=== PATIENT | female | born 1945 | race Caucasian/White ===

== ENCOUNTER → 2020-11-09 14:50 | Outpatient (REF) | payer MEDICARE, OTHER, SELFPAY | LOC: ANHLAB 14:50 | PROVIDERS: PCP Internal Medicine; Visit Provider Nurse Practitioner | DX: D22.0 Melanocytic nevi of lip (principal) | CPT/HCPCS: 88305; 88342 ==

== ENCOUNTER → 2021-02-04 07:41 | Outpatient (CLI) | payer MEDICARE, OTHER, SELFPAY ==
[2021-02-04 19:22] LABS: SARS-CoV-2 RNA PCR Negative
== END ==
PROVIDERS: PCP Internal Medicine; Visit Provider Internal Medicine Gastroenterology
DX: Z01.812 Encounter for preprocedural laboratory examination (principal); Z20.822 Contact with and (suspected) exposure to COVID-19
CPT/HCPCS: C9803; U0003; U0005

== ENCOUNTER 2021-02-07 00:30 | Day surgery (SDC) | payer MEDICARE, OTHER, SELFPAY ==
[2021-01-27 09:49] VITALS: BMI 28.3
[2021-02-07 06:21] VITALS: BP 146/74; PULSE 73; RESP 18; TEMP 36.5; O2SAT 97
[2021-02-07 06:37] LABS: Glucose Point of Care 125 mg/dl (65-105)
[2021-02-07] MEDS: LACTATED RINGERS 1,000 ML 150 ML IV CONT (06:39)
--- NOTE | 2021-02-07 06:42 | WPDANESEPPF ---
Anes - Initial Pre Proc Eval Procedure: Operation Date: 02/07/21 07:30 Proposed Procedures p Esophagogastroduodenoscopy - Ranjith Cano MD Date/Time: 02/07/21 06:42 Surgeon: Ranjith Cano MD Pre Op Diagnosis: barretts esophagus, GERD Patient Data Age: 75 Gender: F Height: 5 ft 1 in Weight: 70.6 kg Last Vital Signs Temp 36.5 C 02/07/21 06:21 Pulse 73 02/07/21 06:21 Resp 18 02/07/21 06:21 BP 146/74 H 02/07/21 06:21 Pulse Ox 97 02/07/21 06:21 Allergies Allergy/AdvReac Type Severity Reaction Status Date / Time meloxicam Allergy Swelling Verified 02/07/21 06:16 of Lip/Tongue/Throat Home Medications Medication Instructions Recorded Confirmed Type aspirin 81 mg tablet,delayed 81 mg PO DAILY 07/25/19 01/27/21 History release calcium carb,cit 300 mg-D3 200 1 tablet PO DAILY 07/25/19 01/27/21 History unit-min no.34-genistein 13.5 mg tablet glucosamine-chondroitin 250 mg-200 2 tablet PO DAILY tablet 07/25/19 01/27/21 History mg tablet metformin 500 mg tablet,extended 250 mg PO DAILY 07/25/19 01/27/21 History release 24 hr metoprolol succinate 25 mg 25 mg PO DAILY 07/25/19 02/07/21 History tablet,extended release 24 hr multivitamin 1 tablet PO DAILY 07/25/19 01/27/21 History pantoprazole 40 mg tablet,delayed 40 mg PO BID 08/10/20 01/27/21 History release pravastatin 20 mg tablet 20 mg PO DAILY 08/10/20 01/27/21 History furosemide 10 mg/mL oral solution 10 mg PO DAILY 11/09/20 01/27/21 History famotidine 20 mg tablet 20 mg PO DAILY 01/17/21 01/27/21 History Laboratory Tests 02/07/21 06:34 POC Capillary Glucose 125 mg/dl H mg/dl (65-105) Patient hx anesthesia problems: none Family hx anesthesia problems: none PMFSH Past Medical History Medical History Arthritis Diabetes Gastric reflux Lipidemia Surgical History Surgical History History of cholecystectomy History of endoscopy History of hernia repair History of tonsillectomy and adenoidectomy Family History Family History Father Malignant neoplasm of prostate Family history of malignant neoplasm of urinary bladder Mother Family history of lymphoma Social History Social History Smoking packs per day: 1 Smoking cigarettes per day: 20.0 Years smoked: 20 Smoking pack-years: 20.00 Smoking status: Former smoker Tobacco type: cigarettes Alcohol intake: current Drinks per week: 1 Substance use: never Substance use type: does not use Living arrangements: with friend(s) Gender identity (if verbalized by the patient): Female Spiritual care concerns: No Anes - Eval Final PreProcedure Day of Procedure 02/07/21 06:42 Patient weight: overweight Heart: regular rate and rhythm Lungs: clear to auscultation Airway: Mallampati scale class III Neurological: alert and oriented Last oral intake: >/= 8 hours ASA classification: III Emergent: no Anesthetic plan: proceed Anesthesia type and monitoring: general GIVS Informed Consent: The patient's anesthetic plan and its attendant risks and benefits were discussed with the patient/family/POA. Questions were solicited and answers provided to the satisfaction of the patient/family/POA.
--- NOTE | 2021-02-07 07:30 | WPDHPUPDATE1 ---
History and Physical Update Update Date/Time: 02/07/21 07:30 History and Physical has been reviewed, including an updated exam of the patient. There are NO changes in the patient's condition. Risks, benefits, and alternatives have been discussed and questions answered. Patient agrees to proceed with procedure.
--- NOTE | 2021-02-07 07:40 | SUR.OPER ---
EGD scope removed at 07 so that ventilation could be given via ambu bag by anesthesia. EGD scope re-entered at 07.
[2021-02-07 07:52] VITALS: BP 130/68; PULSE 62; RESP 24; O2SAT 99
[2021-02-07 08:02] VITALS: BP 135/66; PULSE 62; RESP 22; O2SAT 100
[2021-02-07 08:12] VITALS: BP 140/72; PULSE 65; RESP 24; O2SAT 94
== END 2021-02-07 08:34 | disposition home or self-care (01) ==
PROVIDERS: PCP Internal Medicine; Visit Provider Internal Medicine Gastroenterology
PROC: 0DJ08ZZ Inspection of Upper Intestinal Tract, Via Natural or Artificial Opening Endoscopic (ICD-10-PCS; CPT 43235; principal; 2021-02-07 07:30)
DX: K21.9 Gastro-esophageal reflux disease without esophagitis (principal); K29.50 Unspecified chronic gastritis without bleeding; M19.90 Unspecified osteoarthritis, unspecified site; E11.9 Type 2 diabetes mellitus without complications; Z90.49 Acquired absence of other specified parts of digestive tract; Z87.891 Personal history of nicotine dependence
CPT/HCPCS: 43239; 82948; 88305; 88342; J2704; J7120

== ENCOUNTER 2021-02-23 13:23 | Outpatient (CLI) | payer MEDICARE, OTHER, SELFPAY ==
--- NOTE | ~2021-02-23 | US_ITS ---
EXAMINATION: US venous doppler [facility] EXAM DATE: 02/23/2021 14:03 INDICATION: Left lower extremity pain and swelling. TECHNIQUE: Multiple grayscale, color flow and Doppler images of the left lower extremity deep venous system were obtained and reviewed. There is no prior study for comparison. FINDINGS: The left common femoral, femoral and profunda veins demonstrate normal color flow, respirat ory variation, augmentation and compressibility. Compressibility, color flow confirmed within the le ft popliteal, posterior tibial, peroneal, and greater saphenous veins. IMPRESSION: 1. No left lower extremity deep venous thrombosis. Reviewed, dictated and finalized at location A.
== END 2021-02-23 13:24 | disposition home or self-care (01) ==
PROVIDERS: PCP Internal Medicine; Visit Provider Physician Assistant Medical
DX: M79.662 Pain in left lower leg (principal); R22.43 Localized swelling, mass and lump, lower limb, bilateral
CPT/HCPCS: 93971

== ENCOUNTER 2021-04-08 12:49 | Outpatient (CLI) | payer MEDICARE, OTHER, SELFPAY ==
--- NOTE | 2021-04-08 | ECHO_ITS ---
Patient Info Name: Jenni Herbert Age: 75 years : 1945 Gender: Female Ht: 62 in Wt: 155 lbs BSA: 1.78 m2 HR: 75 bpm BP: 126 / 79 mmHg Exam Date: 04/08/2021 1:19 PM Exam Location: [facility] Patient Status: Outpatient Admit Date: 04/08/2021 Staff Ordering Physician: Humaira, Anne MIRELES Junior Linux Systems Administrator: Glenn Hartman, CAMPOS, RT Attending Provider: Humaira, Anne MIRELES Referring Physician: Humaira WHITE; Exam Type: CA echo doppler color flow Study Info Indications R01.1 - Cardiac murmur, unspecified Complete two-dimensional, color flow and Doppler transthoracic echocardiogram is performed. Strain analysis performed. Summary 1. Complete two-dimensional, color flow and Doppler transthoracic echocardiogram is performed. 2. Left ventricular chamber dimension is normal. 3. Left ventricular systolic function is normal, estimated at 55-60%. 4. There is mildly increased left ventricular wall thickness. 5. Left ventricular septal wall motion is abnormal with septal motion related to bundle branch block. 6. The left ventricular diastolic function is grade I diastolic dysfunction. 7. E/e' 11 is mildly elevated. 8. Global longitudinal strain is abnormal at -15.3%. 9. No pulmonary hypertension, estimated pulmonary arterial systolic pressure is 34 mmHg. 10. There is trivial pericardial effusion. Left Ventricle E/e' 11 is mildly elevated. Global longitudinal strain is abnormal at -15.3%. Left ventricular chamber dimension is normal. Left ventricular systolic function is normal, estimated at 55-60%. There is mildly increased left ventricular wall thickness. Left ventricular septal wall motion is abnormal with septal motion related to bundle branch block. The left ventricular diastolic function is grade I diastolic dysfunction. Right Ventricle Right ventricular systolic function is normal with normal TAPSE 2.0 cm. Right ventricular chamber dimension is normal. Left Atria Left atrial chamber dimension is normal. Right Atria Right atrial chamber dimension is normal. Aortic Valve The aortic valve is trileaflet. There is no aortic valve stenosis. There is no aortic valve regurgitation. Pulmonic Valve There is no pulmonic regurgitation. Mitral Valve There is no mitral valve stenosis. There is no mitral valve regurgitation. Tricuspid Valve There is no tricuspid valve regurgitation. No pulmonary hypertension, estimated pulmonary arterial systolic pressure is 34 mmHg. Pericardium/Pleural There is trivial pericardial effusion. Inferior Vena Cava Normal inferior vena cava with >50% collapse upon inspiration consistent with normal right atrial pressure, 5 mmHg. Aorta The aortic root size at the sinus of Valsalva is normal. Left Ventricular Outflow Tract Name Value Normal LVOT 2D LVOT Diameter 2.0 cm LVOT Doppler LVOT Peak Gradient 5 mmHg LVOT Mean Gradient 3 mmHg LVOT VTI 20 cm LVOT VTI/AV VTI Ratio 0.7 LVOT Stroke Volume
== END 2021-04-08 12:50 | disposition home or self-care (01) ==
PROVIDERS: PCP Internal Medicine; Visit Provider Physician Assistant Medical
DX: R01.1 Cardiac murmur, unspecified (principal)
CPT/HCPCS: 93306

== ENCOUNTER 2021-05-06 08:33 | Outpatient (CLI) | payer MEDICARE, OTHER, SELFPAY ==
--- NOTE | ~2021-05-06 | NM_ITS ---
EXAMINATION: NM kelle stress w perfusion DATE: 05/06/2021 11:16 INDICATION: Dyspnea on exertion. TECHNIQUE: Rest images were obtained following intravenous administration of 10.6 mCi Tc99m tetrofosm in (Myoview). The patient was infused intravenously with Lexiscan (regadenoson). Then, 33 mCi Tc99m t etrofosmin (Myoview) was administered intravenously, and supine and prone stress images were obtained . Data was reconstructed into short axis and horizontal and vertical long axis SPECT images. Gated SP ECT images were also obtained. COMPARISON: None. FINDINGS: There is a small, mild, fixed perfusion defect involving apical to mid anterior wall, consi stent with infarct. No reversible component to suggest ischemia. There is no segmental wall motion ab normality. Left ventricular ejection fraction measures 51%. IMPRESSION: 1. 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 2. Left ventricular ejection fraction measuring 51%. Reviewed, dictated and finalized at location B. IMPRESSION: 1. Small area of mild infarct involving apical to mid anterior wall of left walt tricle. 2. Left ventricular ejection fraction measuring 51%.
--- NOTE | 2021-05-06 09:40 | EST_ITS ---
Patient Info Name: Jenni Herbert Age: 75 years : 1945 Gender: Female Ht: 61 in Wt: 155 lbs BSA: 1.76 m2 HR: 81 bpm BP: 145 / 83 mmHg Heart Rhythm: Right Bundle Branch Block Exam Date: 05/06/2021 9:51 AM Exam Location: [facility] Patient Status: Outpatient Admit Date: 05/06/2021 Staff Ordering Physician: Mark Neumann DO Attending Provider: Mark Neumann DO Exercise Technologist: Vidhya Clay CT Exercise Physician: Mark Neumann DO Exam Type: CA stress kelle w NM Study Info A regadenoson stress test was performed. Summary 1. 1. Inconclusive lexiscan stress test for ischemic ST changes by ECG criteria due to baseline LBBB. 2. 2. Baseline hypertension. 3. 3. Nuclear scan to follow and will be reported separately. Please correlate with it. 4. 4. Patient informed of the above results. Protocol: Lexiscan Stress ECG Details Stage: REST Duration (min): 1 min : 2 sec HR (bpm): 78 SBP (mmHg): 145 DBP (mmHg): 83 Stage: REST Duration (min): 5 min : 37 sec HR (bpm): 81 SBP (mmHg): 145 DBP (mmHg): 83 Stage: STAGE 1 Duration (min): 1 min : 0 sec HR (bpm): 100 SBP (mmHg): 157 DBP (mmHg): 84 Stage: RECOVERY Duration (min): 1 min : 0 sec HR (bpm): 92 SBP (mmHg): 157 DBP (mmHg): 84 Stage: RECOVERY Duration (min): 2 min : 0 sec HR (bpm): 89 SBP (mmHg): 157 DBP (mmHg): 84 Stage: RECOVERY Duration (min): 2 min : 50 sec HR (bpm): 84 SBP (mmHg): 146 DBP (mmHg): 78 Rest HR: 81 bpm Peak HR: 100 bpm Rest Sys BP: 145 mmHg Peak Sys BP: 157 mmHg Max Pred HR: 146 bpm % Max Pred HR: 68 % Target HR: 124 bpm Max RPP: 15,700 bpm*mmHg Termination Reason: Completed protocol Cardiac Symptoms: None Total Time: 1 min : 0 sec Rest Conway BP: 83 mmHg Peak Conway BP: 84 mmHg Total Dose: 0.4 mg Resting ECG Sinus rhythm with LBBB. Stress ECG No ST changes. Arrhythmias None. Report Signatures
== END 2021-05-06 08:34 | disposition home or self-care (01) ==
LOC: ANHCARD 08:34
PROVIDERS: PCP Internal Medicine; Visit Provider Internal Medicine Cardiovascular Disease
DX: R06.00 Dyspnea, unspecified (principal)
CPT/HCPCS: 78452; 93017; A9502; J2785

== ENCOUNTER 2023-04-18 12:33 | Outpatient (CLI) | payer MEDICARE, OTHER, SELFPAY ==
--- NOTE | ~2023-04-18 | US_ITS ---
EXAMINATION: US venous doppler [facility] DATE: 04/18/2023 13:24 INDICATION: Pulmonary embolus without acute cor pulmonale TECHNIQUE: Grayscale ultrasound images without and with compression and Doppler ultrasound images of the bilateral lower extremity veins were obtained. COMPARISON: 02/23/2021 FINDINGS: The visualized portions of right common femoral vein, profunda (deep) femoral vein, femoral vein, pop liteal vein, posterior tibial veins, peroneal veins, gastrocnemius vein and greater saphenous vein ou tflow are patent. The visualized portions of left common femoral vein, profunda femoral vein, femoral vein, popliteal v ein, posterior tibial veins, peroneal veins, gastrocnemius vein and greater saphenous vein outflow ar e patent. IMPRESSION: 1. No deep venous thrombosis in either lower limb. Reviewed, dictated and finalized at location A.
== END 2023-04-18 12:34 | disposition home or self-care (01) ==
PROVIDERS: PCP Physician Assistant Medical; Visit Provider Internal Medicine Critical Care Medicine
DX: I26.99 Other pulmonary embolism without acute cor pulmonale (principal)
CPT/HCPCS: 93970

== ENCOUNTER 2023-05-08 12:19 | Outpatient (CLI) | payer MEDICARE, OTHER, SELFPAY ==
--- NOTE | 2023-05-08 12:30 | ECHO_ITS ---
Patient Info Name: Jenni Herbert Age: 77 years : 1945 Gender: Female Ht: 61 in Wt: 152 lbs BSA: 1.75 m2 HR: 78 bpm BP: 135 / 76 mmHg Technical Quality: Good Exam Date: 05/08/2023 12:48 PM Exam Location: [facility] Patient Status: Outpatient Admit Date: 05/08/2023 Staff Ordering Physician: Chloe Gordon MD Anesthesia Director: Kimberly Gutierrez RDCS Attending Provider: Chloe Gordon MD Referring Physician: Evan SORENSEN; Exam Type: CA echo doppler color flow Study Info Indications - copd Complete two-dimensional, color flow and Doppler transthoracic echocardiogram is performed. Summary 1. Complete two-dimensional, color flow and Doppler transthoracic echocardiogram is performed. 2. Left ventricular chamber dimension is moderately enlarged. 3. Left ventricular systolic function is severely reduced, estimated at 30-35%. 4. Left ventricular septal wall motion is abnormal with septal motion related to bundle branch block. 5. The left ventricular diastolic function is grade I diastolic dysfunction. 6. E/e' 16 is elevated. 7. Global longitudinal strain is abnormal -11.2%. 8. There is mild aortic valve sclerosis. 9. The mitral valve has moderately calcified annulus. 10. There is mild mitral valve regurgitation. 11. No pulmonary hypertension, estimated pulmonary arterial systolic pressure is 31 mmHg. Left Ventricle E/e' 16 is elevated. Global longitudinal strain is abnormal -11.2%. Left ventricular chamber dimension is moderately enlarged. Left ventricular systolic function is severely reduced, estimated at 30-35%. Left ventricular septal wall motion is abnormal with septal motion related to bundle branch block. The left ventricular diastolic function is grade I diastolic dysfunction. Right Ventricle Right ventricular chamber dimension is normal. Right ventricular systolic function is normal. Left Atria Left atrial chamber dimension is normal. Right Atria Right atrial chamber dimension is normal. Aortic Valve The aortic valve is trileaflet. There is mild aortic valve sclerosis. There is no aortic valve stenosis. There is no aortic valve regurgitation. Pulmonic Valve There is no pulmonic regurgitation. Mitral Valve The mitral valve has moderately calcified annulus. There is no mitral valve stenosis. There is mild mitral valve regurgitation. Tricuspid Valve There is no tricuspid valve regurgitation. No pulmonary hypertension, estimated pulmonary arterial systolic pressure is 31 mmHg. Pericardium/Pleural There is no pericardial effusion. Inferior Vena Cava Normal inferior vena cava with >50% collapse upon inspiration consistent with normal right atrial pressure, 5 mmHg. Aorta The aortic root size at the sinus of Valsalva is normal. Left Ventricular Outflow Tract Name Value Normal LVOT 2D LVOT Diameter 2.0 cm LVOT Doppler LVOT Peak Gradient 5 mmHg LVOT Mean Gradient 3 mmHg LVOT VTI 18 cm LVOT VTI/AV VTI Ratio 0.8 LVOT Stroke Volume 55 ml LVOT CO 15.9 l/min LVOT
--- NOTE | 2023-05-09 07:04 | WPDSIXMINUTE ---
Six Minute Walk Procedure Procedure Performed Pulmonary Stress Test (6 min walk) Six Minute Walk Six Minute Walk: This is a 6 minute walk test. The test was performed and interpreted in accordance with the 2014 ERS/ATS task force guidelines. Findings: The patient's resting room air oxygen saturation measured by pulse oximetry was 96% and heart rate was 87 bpm. Patient ambulated for 335 meters and oxygen saturation remained 93 to 94%. Heart rate at the end of the study was 114 bpm. The patient did not qualify for supplemental oxygen at rest or with ambulation. There are no prior studies for comparison.
--- NOTE | 2023-05-09 07:05 | WPDPFTINT ---
PFT Procedure Performed PFT Procedure Performed Spirometry with Pre/Post Bronchodilator Plethysmography (Lung Vol) Diffusing Cap (DLCO) Flow Vol Loop PFT Interpretation This is a pulmonary function test with pre and post-bronchodilator spirometry, plethysmography and diffusing capacity. The test was performed and results interpreted in accordance with the 2019 and 2005 ATS/ERS Task Force guidelines respectively using the Global Lung Function Initiative-2012 reference equations. Patient demonstrated good effort and cooperation. Reproducibility criteria were met. The quality of the pre bronchodilator spirometry maneuver was Grade A and post bronchodilator spirometry maneuver was Grade A. Findings: Spirometry: The contour the inspiratory and expiratory flow tracing are normal. The pre bronchodilator FVC is 2.47 L, 102% predicted. The pre bronchodilator FEV1 is 1.93 L, 103% predicted. The pre bronchodilator FEV1: FVC ratio 78%. The post bronchodilator FVC is 2.48 L, representing no change. The post bronchodilator FEV1 is 1.97 L, representing a 2% increase. The post bronchodilator FEV1: FVC ratio 79%. Plethysmography: The total lung capacity is 3.88 L, 83% predicted. The functional residual capacity is 1.53 L, 57% predicted. The residual volume is 1.41 L, 65% predicted. Diffusing capacity: The diffusing capacity unadjusted for hemoglobin and carboxyhemoglobin is 14.2, 75% predicted. The diffusing capacity adjusted for alveolar volume is 4.02, 93% predicted. Impression: The spirometry is normal without evidence of an obstructive abnormality. There is no significant improvement after inhaling a single dose of albuterol. The total lung capacity and residual volume are normal with a decreased functional residual capacity. This is an abnormal but nonspecific lung volume pattern. The diffusing capacity is normal. There are no prior studies for comparison
== END 2023-05-08 12:20 | disposition home or self-care (01) ==
LOC: ANHPFT 12:20
PROVIDERS: PCP Physician Assistant Medical; Visit Provider Internal Medicine Critical Care Medicine
DX: J44.9 Chronic obstructive pulmonary disease, unspecified (principal); I34.0 Nonrheumatic mitral (valve) insufficiency
CPT/HCPCS: 93306; 94060; 94618; 94726; 94729

== ENCOUNTER 2023-07-20 11:30 | Outpatient (RCR) | payer MEDICARE, OTHER, SELFPAY ==
--- NOTE | 2023-06-04 10:42 | PTOPEVAL1 ---
Assessment and note entered by Catherine Gross, PT Evaluation Information Assessment Status Evaluation Diagnosis dizziness and giddiness Therapy conditions BPPV unspec, gait abnormality Subjective Information Got a concussion on May [address], had 6 dewayne. Had just gotten out of the truck, was going to stoop down to pick something up and hit the mirror and fell backwards hitting her head on concrete. Went to emergency room, went home after 6 hours or so. The next morning at 4am got up to go to the bathroom and the bathroom was spinning. Went back to emergency room, and also had left shoulder and neck pain. Did a potassium and magnesium infusion, ruled out heart attack and stroke and this is when they saw concussion. Was provided Tetanis shot and anti nausea medication. Needs to walk 150 minutes a week, but currently is having to use a walker. sometimes doesn't need the walker but has a 120 lb lab dog. Laying on left side seems to make dizziness worse. Reported Pain Level Pain Score 1: Self Report Assessment PT Clinical Summary Pt presents with complaints of dizziness that presented after fall with concussion. Evaluation demo's increased symptoms with cervical flexion/ extension, with sit<>supine position, with L sided testing more so than right sided testing. Nystagmus noted as well however ticks we quick and very small motions thus is difficult to discern side. Symptoms highly suggestive of BPPV of unspecified side. Thus patient will benefit from physical therapy to address dizzines, balance deficits, and ambulatoin to return to PLOF. Plan of Care Interventions Gait Training,Neuro Re-education,Therapeutic Activities,Therapeutic Exercise PT Services Indicated Yes Treatment Frequency and 1-2x weekly x 4 weeks Duration These treatments will address the objective and functional deficits as defined above. The patient will be advanced safely and appropriately in order for the patient to progress towards his/her prior level of function. Additional exercises will be introduced and as well as a comprehensive home exercise program upon discharge, if needed, ?to ensure carryover of functional gains achieved in the clinic. This treatment plan has been reviewed and agreement upon by the patient.
--- NOTE | 2023-06-04 10:42 | OPREHPOC ---
Outpatient Therapy Plan of Care This is a Multidisciplinary Plan of Care that may contain components documented by all disciplines (PT, OT, and ST.) PT Problem 1 PT Problem #1 Knowledge Deficit PT Goal 1 Goal Pt will be independent in HEP Pt will verbalize understanding of diagnosis and prognosis Target Visit 8 PT Problem 2 PT Problem #2 Impaired Gait PT Goal 1 Goal Pt will demo ability to ambulate with single point cane x 150 ft Target Visit 8 PT Goal 2 Goal Pt will demo ability to ambulate on smooth surface with no AD x 150 ft Target Visit 16 PT Problem 3 PT Problem #3 Impaired Vestibular Syste PT Goal 1 Goal Pt will report resolution of symptoms with laying on left side. Target Visit 16 PT Problem 5 PT Problem #5 Impaired Balance PT Goal 1 Goal Pt will demo 5x sit to stand testing without AD in 25 seconds or less Target Visit 8 PT Goal 2 Goal Pt will demo ability to perform 5x sit to stand within 15 seconds without AD Target Visit 16
--- NOTE | 2023-06-28 16:47 | PTOPPROG ---
Assessment and note entered by Catherine Gross, PT Assessment Status Progress Report Diagnosis dizziness and giddiness Subjective Information Pt reports feeling 98% improved. Has started returning to her walking for fitness without her walker. Pt was able to mow the lawn with her zero turn mower and ducking under limbs without symptoms. Assessment PT Clinical Summary Pt has made significant progress in therapy. Reports feeling 98% improved overall, no longer uses a 2w-w to ambulate, is back to driving, was able to use a riding mower to mow her yard, and return to walking for fitness. However balance testing with eyes closed and BPPV testing cont to demo mild symptoms. Pt home exercises were updated and frequency reduced to address next phase of progress with therapy. Plan of Care Interventions Gait Training,Neuro Re-education,Therapeutic Activities,Therapeutic Exercise PT Services Indicated Yes Treatment Frequency and 1x weekly x 4 weeks Duration These treatments will address the objective and functional deficits as defined above. The patient will be advanced safely and appropriately in order for the patient to progress towards his/her prior level of function. Additional exercises will be introduced and as well as a comprehensive home exercise program upon discharge, if needed, ?to ensure carryover of functional gains achieved in the clinic. This treatment plan has been reviewed and agreement upon by the patient.
--- NOTE | 2023-07-20 11:49 | PTOPDC ---
Assessment and note entered by Catherine Gross, PT Assessment Status Discharge Diagnosis dizziness and giddiness Subjective Information Pt reports has returned to her normal activities and feels good. Feels 100% improved. Reported Pain Level Pain Score 0: Self Report Assessment PT Clinical Summary Pt has attended therapy consistently for vertigo and balance deficits. She has met all her goals except tandem standing with eyes closed. She feels 100% improved and has returned to all her normal activities without issue. Thus is being discharged from therapy for completing her plan of care.
== END 2023-07-20 11:52 | disposition home or self-care (01) ==
LOC: ANHHIPT 11:30
PROVIDERS: PCP Physician Assistant Medical; Visit Provider Physician Assistant Medical
DX: H81.12 Benign paroxysmal vertigo, left ear (principal); R26.89 Other abnormalities of gait and mobility; S06.0X0A Concussion without loss of consciousness, initial encounter
CPT/HCPCS: 95992; 97110; 97112; 97162; 97750

== ENCOUNTER 2023-08-01 12:59 | Outpatient (CLI) | payer MEDICARE, OTHER, SELFPAY ==
--- NOTE | 2023-08-01 13:25 | ECHO_ITS ---
Patient Info Name: Jenni Herbert Age: 78 years : 1945 Gender: Female Ht: 61 in Wt: 148 lbs BSA: 1.72 m2 HR: 68 bpm BP: 118 / 69 mmHg Technical Quality: Fair Exam Date: 08/01/2023 1:28 PM Exam Location: Echo Lab Patient Status: Outpatient Admit Date: 08/01/2023 Staff Ordering Physician: Mark Neumann DO Flooring Installer: Kimberly Gutierrez RDCS Attending Provider: Mark Neumann DO Referring Physician: Thien SCHROEDER; Exam Type: CA echo doppler color flow Study Info Indications I51.89 - Other ill-defined heart diseases Complete two-dimensional, color flow and Doppler transthoracic echocardiogram is performed. Summary 1. Complete two-dimensional, color flow and Doppler transthoracic echocardiogram is performed. 2. Left ventricular chamber dimension is moderately enlarged. 3. Left ventricular systolic function is severely globally reduced, estimated at 30-35%. 4. Left ventricular septal wall motion is abnormal with septal motion related to bundle branch block. 5. The left ventricular diastolic function is grade I diastolic dysfunction. 6. E/e' 11 is mildly elevated. 7. Global longitudinal strain is abnormal at -11.2%. 8. Left atrial chamber dimension is mildly enlarged. 9. There is mild aortic valve sclerosis. 10. There is mild to moderate mitral valve regurgitation. 11. There is trace tricuspid valve regurgitation. 12. No pulmonary hypertension, estimated pulmonary arterial systolic pressure is 29 mmHg. Left Ventricle E/e' 11 is mildly elevated. Global longitudinal strain is abnormal at -11.2%. Left ventricular chamber dimension is moderately enlarged. Left ventricular systolic function is severely globally reduced, estimated at 30-35%. Left ventricular septal wall motion is abnormal with septal motion related to bundle branch block. The left ventricular diastolic function is grade I diastolic dysfunction. Right Ventricle Right ventricular systolic function is normal and with normal TAPSE 2.1 cm. Right ventricular chamber dimension is normal. Left Atria Left atrial chamber dimension is mildly enlarged. Right Atria Right atrial chamber dimension is normal. Aortic Valve The aortic valve is trileaflet. There is mild aortic valve sclerosis. There is no aortic valve stenosis. There is no aortic valve regurgitation. Pulmonic Valve There is no pulmonic regurgitation. Mitral Valve There is no mitral valve stenosis. There is mild to moderate mitral valve regurgitation. Tricuspid Valve There is trace tricuspid valve regurgitation. No pulmonary hypertension, estimated pulmonary arterial systolic pressure is 29 mmHg. Pericardium/Pleural There is no pericardial effusion. Inferior Vena Cava Normal inferior vena cava with >50% collapse upon inspiration consistent with normal right atrial pressure, 5 mmHg. Aorta The aortic root size at the sinus of Valsalva is normal. Left Ventricular Outflow Tract Name Value Normal LVOT 2D LVOT Diameter 2.0 cm LVOT Doppler LVOT Peak Gradient 6 mmHg LVOT Mean Gradient 4 mmHg LVOT VTI 22 cm LVOT VTI/AV VTI Ratio 0.[address]
== END 2023-08-01 13:00 | disposition home or self-care (01) ==
LOC: ANHCARD 13:00
PROVIDERS: PCP Physician Assistant Medical; Visit Provider Internal Medicine Cardiovascular Disease
DX: I08.0 Rheumatic disorders of both mitral and aortic valves (principal)
CPT/HCPCS: 93306

== ENCOUNTER 2023-08-24 10:01 | Outpatient (CLI) | payer MEDICARE, OTHER, SELFPAY ==
[2023-08-24 10:37] LABS: Hemoglobin A1C 7.2 % (<5.7)
== END 2023-08-24 10:02 | disposition home or self-care (01) ==
PROVIDERS: PCP Physician Assistant Medical; Visit Provider Physician Assistant Medical
DX: E11.9 Type 2 diabetes mellitus without complications (principal); R74.8 Abnormal levels of other serum enzymes
CPT/HCPCS: 36415; 82607; 83036

== ENCOUNTER 2023-09-05 03:22 | Day surgery (SDC) | payer MEDICARE, OTHER, SELFPAY ==
[2023-08-30 12:57] VITALS: BMI 27.7
--- NOTE | 2023-09-03 09:34 | SUR.PREOP ---
Patient called regarding upcoming procedure. Reviewed preop instructions, appointment times, and procedure prep.
[2023-09-05 10:22] VITALS: BP 111/57; PULSE 67; RESP 18; TEMP 36.1; O2SAT 98
--- NOTE | 2023-09-05 10:32 | WPDANESEPPF ---
Anes - Initial Pre Proc Eval Procedure: Operation Date: 09/05/23 11:30 Proposed Procedures p Esophagogastroduodenoscopy - Robert Oliveros MD Date/Time: 09/05/23 10:32 Surgeon: Robret Oliveros MD Pre Op Diagnosis: Foreign body sensation,throat, and chronic cough Patient Data Age: 78 Gender: F Height: 1.55 m Weight: 66.4 kg Last Vital Signs Temp 36.1 C L 09/05/23 10:22 Pulse 67 09/05/23 10:22 Resp 18 09/05/23 10:22 BP 111/57 L 09/05/23 10:22 Pulse Ox 98 09/05/23 10:22 O2 Del Method Room Air 09/05/23 10:22 Allergies Allergy/AdvReac Type Severity Reaction Status Date / Time meloxicam Allergy Swelling Verified 09/05/23 10:21 of Lip/Tongue/Throat fluticasone furoate AdvReac agitated Verified 09/05/23 10:21 [From Breo Ellipta] lungs vilanterol AdvReac agitated Verified 09/05/23 10:21 [From Breo Ellipta] lungs Home Medications Medication Instructions Recorded Confirmed Type calcium carb,cit 300 mg-D3 200 1 tablet PO DAILY 07/25/19 08/30/23 History unit-min no.34-genistein 13.5 mg tablet (Citracal Plus Bone Density Builder) multivitamin 1 tablet PO DAILY 07/25/19 08/30/23 History pseudoephedrine-guaifenesin ER 120 1 tablet PO BID PRN cold symptoms 11/27/22 08/30/23 Rx mg-1,200 mg tab,extend release #60 tabs 12hr (Mucinex D Maximum Strength) atorvastatin 40 mg tablet 40 mg PO DAILY #90 tabs 03/26/23 08/30/23 Rx albuterol sulfate 90 mcg/actuation 2 inh inhalation Q4H PRN shortness 04/09/23 08/30/23 Rx aerosol inhaler (Ventolin HFA) of breath or wheezing #6.7 grams metformin 500 mg tablet,extended 500 mg PO BID #180 tabs 04/23/23 08/30/23 Rx release 24 hr potassium chloride 20 mEq 20 meq PO DAILY #90 tabs 04/23/23 08/30/23 Rx tablet,extended release(part/cryst) dapagliflozin propanediol 10 mg 10 mg PO DAILY #30 tabs 05/11/23 08/30/23 Rx tablet (Farxiga) sacubitril 24 mg-valsartan 26 mg 1 tablet PO BID #60 tabs 05/11/23 08/30/23 Rx tablet (Entresto) spironolactone 25 mg tablet 25 mg PO DAILY #30 tabs 05/11/23 08/30/23 Rx cyanocobalamin (vitamin B-12) 4,000 mcg PO DAILY 05/24/23 08/30/23 History 2,000 mcg tablet blood sugar diagnostic (Contour #100 ea 06/26/23 08/02/23 Rx Test Strips) montelukast 10 mg tablet See Rx Instructions .Route 07/16/23 08/30/23 Rx .COMPLEX #90 tabs carvedilol 3.125 mg tablet 3.125 mg PO Q12H #60 tabs 08/01/23 08/30/23 Rx dexlansoprazole 60 mg 60 mg PO DAILY #90 caps 08/02/23 08/30/23 Rx capsule,biphase delayed release (Dexilant) rabeprazole 20 mg tablet,delayed 20 mg PO BID #60 tabs 08/07/23 08/30/23 Rx release (AcipHex) aspirin 81 mg capsule 81 mg PO DAILY 08/30/23 08/30/23 History furosemide 40 mg tablet 40 mg PO DAILY 08/30/23 08/30/23 History metoprolol succinate 25 mg 25 mg PO DAILY 08/30/23 08/30/23 History tablet,extended release 24 hr Patient hx anesthesia problems: none Family hx anesthesia problems: none Results Review: All pre-operative results and documents have been reviewed as part of the pre-operative evaluation. [facility] Past Medical History Medical History Abdominal wall mass of epigastric region Abnormal nuclear stress test Arthritis Simms's esophagus determined by endoscopy Body mass index [BMI] 28.0-28.9, adult (07/31/17) Chest pain at rest Diabetes Dyslipidemia Essential hypertension Gastric reflux Globus sensation Hiatal hernia Lipidemia Overweight Pulmonary embolism Surgical History Surgical History History of cholecystectomy History of endoscopy History of hernia repair History of tonsillectomy and adenoidectomy Family History Family History Father Malignant neoplasm of prostate Family history of malignant neoplasm of urinary bladder Mother Fam
[2023-09-05] MEDS: LACTATED RINGERS 1,000 ML 150 ML IV CONT (10:36)
[2023-09-05 10:38] LABS: Glucose Point of Care 123 mg/dl (65-105)
--- NOTE | 2023-09-05 11:05 | PM.HPGS ---
History of Present Illness History of Present Illness Consent: Risks, benefits, and alternatives have been discussed and questions answered. Patient agrees to proceed with procedure. Chief complaint: Foreign body sensation,throat, and chronic cough Narrative: Jenni Herbert is a 78 year old female with gerd on protonix bid and chronic cough, last EGD 2020 with gastritis. Review of Systems Constitutional: Constitutional: Denies headache(s) and Denies weakness Eyes: Eyes: Denies blurry vision ENT: Reports Normal hearing present, Denies headache(s) and Denies neck pain Cardiovascular: Cardiovascular: Denies chest pain and Denies dyspnea Respiratory: Respiratory: Denies dyspnea Gastrointestinal: Gastrointestinal: Reports no additional gastrointestinal complaints Genitourinary: Genitourinary: Denies dysuria Musculoskeletal: Musculoskeletal: Denies neck pain Integumentary/Breasts: Skin/Breast: Denies dry skin Neurologic: Reports Normal hearing present, Denies headache(s) and Denies weakness Psychiatric: Psychiatric: Denies anxiety Endocrine: Endocrine: Denies change in body appearance Hematologic/Lymphatic: Hematologic/Lymphatic: Denies easy bleeding Allergic/Immunologic: Allergic/Immunologic: Denies urticaria PMFSH Past Medical History Medical History (Updated 09/05/23 @ 11:06 by Robert Oliveros MD) Abdominal wall mass of epigastric region Abnormal nuclear stress test Arthritis Simms's esophagus determined by endoscopy Body mass index [BMI] 28.0-28.9, adult (07/31/17) Chest pain at rest Cough Diabetes Dyslipidemia Essential hypertension Gastric reflux Globus sensation Hiatal hernia Lipidemia Overweight Pulmonary embolism Surgical History Surgical History History of cholecystectomy History of endoscopy History of hernia repair History of tonsillectomy and adenoidectomy Family History Family History Father Malignant neoplasm of prostate Family history of malignant neoplasm of urinary bladder Mother Family history of lymphoma Social History Social History Smoking packs per day: 1 Smoking cigarettes per day: 20.0 Years smoked: 20 Smoking pack-years: 20.00 Smoking status: Former smoker Tobacco type: cigarettes Second hand tobacco smoke exposure: Yes Smoking end date: 09/17/88 Alcohol intake: never Drinks per week: 1 Substance use: never Substance use type: does not use Lack of Transportation: No Lack of Food: Never True Current Housing: I Have Housing Concerned About Future Housing: No Difficulty Paying Gas/Electric Bills: No Difficulty Paying for Meds: No Currently Unemployed: No Education: High School Diploma/GED Difficulty w/ Childcare or Family Care: No Living arrangements: with friend(s) Additional living arrangements comments: lives with significant other Occupation/Education: retired Gender identity (if verbalized by the patient): Female Sexual Orientation (if Verbalized by the Patient): Straight or Heterosexual Spiritual care concerns: No Meds Home Medications and Allergies Home Medications Medication Instructions Recorded Confirmed Type calcium carb,cit 300 mg-D3 200 1 tablet PO DAILY 07/25/19 08/30/23 History unit-min no.34-genistein 13.5 mg tablet (Citracal Plus Bone Density Builder) multivitamin 1 tablet PO DAILY 07/25/19 08/30/23 History pseudoephedrine-guaifenesin ER 120 1 tablet PO BID PRN cold symptoms 11/27/22 08/30/23 Rx mg-1,200 mg tab,extend release #60 tabs 12hr (Mucinex D Maximum Strength) atorvastatin 40 mg tablet 40 mg PO DAILY #90 tabs 03/26/23 08/30/23 Rx albuterol sulfate 90 mcg/actuation 2 inh inhalation Q4H PRN shortness 04/09/23 08/30/23 Rx aerosol inhaler (Ventolin HFA) of breath or whe
[2023-09-05 11:24] VITALS: BP 108/64; PULSE 70; RESP 24; O2SAT 98
[2023-09-05 11:34] VITALS: BP 122/64; PULSE 78; RESP 26; O2SAT 98
[2023-09-05 11:44] VITALS: BP 118/62; PULSE 66; RESP 19; O2SAT 97
== END 2023-09-05 11:52 | disposition home or self-care (01) ==
PROVIDERS: PCP Physician Assistant Medical; Visit Provider Internal Medicine Gastroenterology
PROC: 0DJ08ZZ Inspection of Upper Intestinal Tract, Via Natural or Artificial Opening Endoscopic (ICD-10-PCS; CPT 43235; principal; 2023-09-05 11:30)
DX: K29.50 Unspecified chronic gastritis without bleeding (principal); K21.00 Gastro-esophageal reflux disease with esophagitis, without bleeding; K44.9 Diaphragmatic hernia without obstruction or gangrene; E11.9 Type 2 diabetes mellitus without complications; E78.5 Hyperlipidemia, unspecified; I10 Essential (primary) hypertension; K21.9 Gastro-esophageal reflux disease without esophagitis; Z86.711 Personal history of pulmonary embolism; Z87.891 Personal history of nicotine dependence; Z79.84 Long term (current) use of oral hypoglycemic drugs; Z79.51 Long term (current) use of inhaled steroids; Z79.82 Long term (current) use of aspirin
CPT/HCPCS: 43239; 82948; 88305; J2704; J7120

== ENCOUNTER 2023-09-14 07:52 | Outpatient (CLI) | payer MEDICARE, OTHER, SELFPAY ==
--- NOTE | ~2023-09-14 | XR_ITS ---
EXAMINATION: XR UGIAC w barium swallow DATE: 09/14/2023 08:49 INDICATION: Chronic cough. TECHNIQUE: The patient drank thick barium, gas-producing crystals, and thin barium. Fluoroscopy of th e esophagus, stomach, and proximal small bowel was performed. Fluoroscopy exposure time was 0.6 minut es. The total number of images was 251. Total dose-area product was 2.344 Gy-cm^2. COMPARISON: None. FINDINGS: There is no mass or stricture of the esophagus. There is decreased primary and secondary es ophageal peristalsis. No abnormal tertiary waves. There is no hiatal hernia. The stomach and proximal small bowel show normal folding patterns. IMPRESSION: 1. Mild esophageal dysmotility. Reviewed, dictated and finalized at location A. TLE MACHINE OPERATOR
== END 2023-09-14 07:53 | disposition home or self-care (01) ==
PROVIDERS: PCP Physician Assistant Medical; Visit Provider Nurse Practitioner
DX: K22.4 Dyskinesia of esophagus (principal); R09.A2 Foreign body sensation, throat; K21.9 Gastro-esophageal reflux disease without esophagitis
CPT/HCPCS: 74246

== ENCOUNTER 2024-01-01 09:18 | Outpatient (CLI) | payer MEDICARE, OTHER, SELFPAY ==
--- NOTE | 2024-01-01 09:52 | ECHO_ITS ---
Patient Info Name: Jenni Herbert Age: 78 years : 1945 Gender: Female Ht: 61 in Wt: 150 lbs BSA: 1.73 m2 HR: 55 bpm Technical Quality: Good Exam Date: 01/01/2024 10:08 AM Exam Location: Echo Lab Patient Status: Outpatient Admit Date: 01/01/2024 Staff Ordering Physician: Mark Neumann DO Shipping Clerk/Admin: Rudy Pedersen RDCS Attending Provider: Mark Neumann DO Referring Physician: Thien SCHROEDER; Exam Type: CA echo dop color flow w con Study Info Indications I51.89 - Other ill-defined heart diseases Complete two-dimensional, color flow and Doppler transthoracic echocardiogram is performed with contrast to opacify the left ventricle and to improve the deliniation of the left ventricle endocardial borders. Summary 1. Definity contrast administered improved wall motion interpretation. 2. Left ventricular systolic function is moderately globally reduced, estimated at 40-45%. 3. Left ventricular chamber dimension is moderately enlarged. 4. Left ventricular septal wall motion is abnormal with septal motion related to bundle branch block. 5. The left ventricular diastolic function is grade I diastolic dysfunction. 6. E/e' 11 is mildly elevated. 7. Left atrial chamber dimension is mildly enlarged. 8. The mitral valve has mildly calcified annulus. 9. There is trace mitral valve regurgitation. 10. There is trace tricuspid valve regurgitation. 11. No pulmonary hypertension, estimated pulmonary arterial systolic pressure is 28 mmHg. 12. There is trace pulmonic regurgitation. 13. There is trivial pericardial effusion. Left Ventricle Definity contrast administered improved wall motion interpretation. E/e' 11 is mildly elevated. Left ventricular systolic function is moderately globally reduced, estimated at 40-45%. Left ventricular chamber dimension is moderately enlarged. Left ventricular septal wall motion is abnormal with septal motion related to bundle branch block. The left ventricular diastolic function is grade I diastolic dysfunction. Right Ventricle Right ventricular systolic function is normal and with normal TAPSE 2.5 cm. Right ventricular chamber dimension is normal. Left Atria Left atrial chamber dimension is mildly enlarged. Right Atria Right atrial chamber dimension is normal. Aortic Valve The aortic valve is trileaflet. There is no aortic valve stenosis. There is no aortic valve regurgitation. Pulmonic Valve There is trace pulmonic regurgitation. Mitral Valve The mitral valve has mildly calcified annulus. There is no mitral valve stenosis. There is trace mitral valve regurgitation. Tricuspid Valve There is trace tricuspid valve regurgitation. No pulmonary hypertension, estimated pulmonary arterial systolic pressure is 28 mmHg. Pericardium/Pleural There is trivial pericardial effusion. Inferior Vena Cava Normal inferior vena cava with >50% collapse upon inspiration consistent with normal right atrial pressure, 5 mmHg. Aorta The aortic root size at the sinus of Valsalva is normal. Left Ventricular Outflow Tract Name Value Normal LVOT 2D LVOT Diameter 1.97 cm LVOT Doppler LVOT Peak Velocity 111.83 cm/s LVOT Peak Gradient 5 mmHg LVO
[2024-01-01] MEDS: PERFLUTREN LIPID MICROSPHERES 1.5 ML VIAL DILUTED TO 10 ML TOTAL VOLUME IV PUSH (10:38)
--- NOTE | 2024-01-07 13:22 | IVDEFINITY ---
Prior to administration of IV Definity the patient was educated on the risks and benefits of the imaging enhancing agent including potential adverse side effects. The patient verbalized understanding. Allergies were verified. No exclusion criteria were identified and at least one of the following inclusion criteria were met: 1) physician request, 2) patient technically difficult to image (per the [place] [employer]ocardi[employer] guidelines of two or more segments not discernable within the apical view), or 3) questionable left ventricular function. ?
== END 2024-01-01 09:19 | disposition home or self-care (01) ==
LOC: ANHCARD 09:20
PROVIDERS: PCP Physician Assistant Medical; Visit Provider Internal Medicine Cardiovascular Disease
DX: I51.89 Other ill-defined heart diseases (principal)
CPT/HCPCS: C8929; Q9957

== ENCOUNTER 2024-05-27 07:50 | Outpatient (CLI) | payer MEDICARE, OTHER, SELFPAY ==
[2024-05-27 08:15] LABS: Basophils Percent Auto 0.5 % (0.2-1.2); Eosinophils Absolute Auto 0.1 K/mm3 (0-0.3); Eosinophils Percent Auto 1.3 % (0-4.4); Hematocrit 48.1 % (37.0-47.0); Hemoglobin 15.7 g/dL (12.0-15.0); Immature Granulocyte Absolute 0.03 K/mm3 (0.00-0.031); Immature Granulocyte Percent A 0.4 % (0-0.5); Lymphocytes Absolute Auto 1.42 K/mm3 (0.9-3.2); Lymphocytes Percent Auto 17.1 % (18.3-44.2); Mean Corpuscular HGB Conc 32.6 g/dl (32-36); Mean Corpuscular Volume 88.9 fl (80-100); Mean Platelet Volume 10.2 fl (7.4-10.4); Monocytes Absolute Auto 0.6 K/mm3 (0.1-0.6); Monocytes Percent Auto 6.8 % (2.6-8.5); Neutrophils Absolute Auto 6.1 K/mm3 (1.3-6.7); Neutrophils Percent Auto 73.9 % (45.5-73.1); Platelet Count Result 322 k/mm3 (150-375); Red Blood Count 5.41 M/mm3 (4.2-5.4); Red Cell Distribution Width 14.1 % (11.5-14.5); White Blood Count 8.3 K/mm3 (4.5-10.0)
[2024-05-27 08:30] LABS: Alanine Aminotransferase 24 U/L (6-35); Albumin Level 4.5 g/dL (3.5-5.1); Alkaline Phosphatase 88 U/L (38-126); Anion Gap 10 mmol/L (4-12); Aspartate Amino Transferase 20 U/L (14-36); Bilirubin,Total 0.6 mg/dL (0.2-1.3); Blood Urea Nitrogen 20 mg/dL (7-17); Calcium 9.7 mg/dL (8.4-10.2); Carbon Dioxide 30 mmol/L (22-30); Chloride 99 mmol/L (98-107); Cholesterol 195 mg/dL (0-200); Estimated Glomerular Filt Rate > 60; Glucose 175 mg/dL (65-110); HDL Direct 71 mg/dL; Potassium 4.2 mmol/L (3.4-5.0); Sodium 139 mmol/L (137-145); Triglycerides 102 mg/dL (<150)
[2024-05-27 08:41] LABS: LDL Cholesterol Direct 97 mg/dL
[2024-05-27 10:01] LABS: Creatinine Urine 6.8 mg/dL
[2024-05-27 10:06] LABS: MALB Creatinine Ratio < 88.2 mg/g (0-30); Microalbumin Urine Random < 6.0 mg/L (0-16.7)
== END 2024-05-27 07:51 | disposition home or self-care (01) ==
PROVIDERS: PCP Physician Assistant Medical; Visit Provider Physician Assistant Medical
DX: E11.9 Type 2 diabetes mellitus without complications (principal); E78.5 Hyperlipidemia, unspecified; I10 Essential (primary) hypertension; J06.9 Acute upper respiratory infection, unspecified
CPT/HCPCS: 36415; 80053; 80061; 82043; 85025

== ENCOUNTER 2024-06-12 07:15 | Outpatient (CLI) | payer MEDICARE, OTHER, SELFPAY ==
[2024-06-12 08:02] LABS: Anion Gap 5 mmol/L (4-12); Blood Urea Nitrogen 18 mg/dL (7-17); Calcium 9.4 mg/dL (8.4-10.2); Carbon Dioxide 32 mmol/L (22-30); Chloride 102 mmol/L (98-107); Estimated Glomerular Filt Rate > 60; Glucose 144 mg/dL (65-110); Potassium 3.9 mmol/L (3.4-5.0); Sodium 139 mmol/L (137-145)
[2024-06-12 08:18] LABS: Basophils Percent Auto 0.8 % (0.2-1.2); Eosinophils Absolute Auto 0.1 K/mm3 (0-0.3); Eosinophils Percent Auto 2.1 % (0-4.4); Hematocrit 46.3 % (37.0-47.0); Hemoglobin 15.1 g/dL (12.0-15.0); Immature Granulocyte Absolute 0.02 K/mm3 (0.00-0.031); Immature Granulocyte Percent A 0.4 % (0-0.5); Lymphocytes Absolute Auto 1.36 K/mm3 (0.9-3.2); Lymphocytes Percent Auto 25.9 % (18.3-44.2); Mean Corpuscular HGB Conc 32.6 g/dl (32-36); Mean Corpuscular Hemoglobin 28.8 pg (26-34); Mean Corpuscular Volume 88.4 fl (80-100); Mean Platelet Volume 10.2 fl (7.4-10.4); Monocytes Absolute Auto 0.5 K/mm3 (0.1-0.6); Monocytes Percent Auto 8.6 % (2.6-8.5); Neutrophils Absolute Auto 3.3 K/mm3 (1.3-6.7); Neutrophils Percent Auto 62.2 % (45.5-73.1); Platelet Count Result 335 k/mm3 (150-375); Red Blood Count 5.24 M/mm3 (4.2-5.4); Red Cell Distribution Width 14.2 % (11.5-14.5); White Blood Count 5.3 K/mm3 (4.5-10.0)
== END 2024-06-12 07:16 | disposition home or self-care (01) ==
LOC: ANHLAB 07:20
PROVIDERS: PCP Physician Assistant Medical; Visit Provider Physician Assistant Medical
DX: K21.9 Gastro-esophageal reflux disease without esophagitis (principal); E78.5 Hyperlipidemia, unspecified
CPT/HCPCS: 36415; 80048; 85025

== ENCOUNTER 2024-12-16 09:46 | Outpatient (CLI) | payer MEDICARE, OTHER, SELFPAY ==
--- NOTE | 2024-12-16 09:49 | ECHO_ITS ---
Patient Info Name: Jenni Herbert Age: 79 years : 1945 Gender: Female Ht: 61 in Wt: 144 lbs BSA: 1.70 m2 HR: 67 bpm BP: 130 / 76 mmHg Heart Rhythm: Sinus Rhythm Technical Quality: Good Exam Date: 12/16/2024 10:03 AM Exam Location: Echo Lab Patient Status: Outpatient Admit Date: 12/16/2024 Staff Ordering Physician: Mark Neumann DO Pediatric Genetic Counselor: Annalee Scanlon RDCS Attending Provider: Mark Neumann DO Referring Physician: Thien SCHROEDER; Exam Type: CA echo doppler color flow Study Info Indications I51.89 - Other ill-defined heart diseases Strain analysis performed. Complete two-dimensional, color flow and Doppler transthoracic echocardiogram is performed. Summary 1. Complete two-dimensional, color flow and Doppler transthoracic echocardiogram is performed. 2. Left ventricular chamber dimension is mildly enlarged. 3. Left ventricular septal wall motion is abnormal with septal motion related to bundle branch block. 4. Left ventricular systolic function is moderately globally reduced, estimated at 40-45%. 5. The left ventricular diastolic function is grade I diastolic dysfunction. 6. E/e' 11 is mildly elevated. 7. Global longitudinal strain is abnormal at -12.7%. 8. Left atrial chamber dimension is mildly enlarged. 9. There is trace aortic valve regurgitation. 10. There is trace mitral valve regurgitation. 11. There is trace tricuspid valve regurgitation. 12. No pulmonary hypertension, estimated pulmonary arterial systolic pressure is 29 mmHg. 13. There is trivial pericardial effusion. Left Ventricle E/e' 11 is mildly elevated. Global longitudinal strain is abnormal at -12.7%. Left ventricular chamber dimension is mildly enlarged. Left ventricular systolic function is moderately globally reduced, estimated at 40-45%. Left ventricular septal wall motion is abnormal with septal motion related to bundle branch block. The left ventricular diastolic function is grade I diastolic dysfunction. Right Ventricle Right ventricular chamber dimension is normal. Right ventricular systolic function is normal. Left Atria Left atrial chamber dimension is mildly enlarged. Right Atria Right atrial chamber dimension is normal. Aortic Valve The aortic valve is trileaflet. There is no aortic valve stenosis. There is trace aortic valve regurgitation. Pulmonic Valve There is no pulmonic regurgitation. Mitral Valve There is no mitral valve stenosis. There is trace mitral valve regurgitation. Tricuspid Valve There is trace tricuspid valve regurgitation. No pulmonary hypertension, estimated pulmonary arterial systolic pressure is 29 mmHg. Pericardium/Pleural There is trivial pericardial effusion. Inferior Vena Cava Normal inferior vena cava with >50% collapse upon inspiration consistent with normal right atrial pressure, 5 mmHg. Aorta The aortic root size at the sinus of Valsalva is normal. Left Ventricular Outflow Tract Name Value Normal LVOT 2D LVOT Diameter 2.0 cm LVOT Doppler LVOT Peak Gradient 4 mmHg LVOT Mean Gradient 2 mmHg LVOT VTI 17 cm LVOT VTI/AV VTI Ratio 0.7 LVOT Stroke Volume 54 ml LVOT CO 3.5 l/min LVOT CI 2.1 l/min/m2 Pulmonic Valve Name Value Normal RVOT Doppler RVOT Peak Gradient 3 mmHg PV Doppler PV Peak Gradient 3 mmHg Mitral Valve Name Value Normal MV Doppler MV Decel [place] 380 cm/s2 MV PHT 51 ms MV Area (PHT) 4.3 cm2 4.0-5.0 MV Diastolic Function MV E Peak Velocity 67 cm/s MV A Peak Velocity 114 cm/s MV E/A 0.6 MV Decel Time 177 ms MV Annular TDI MV E/e' (Septal) 14.8 <=8.0 MV E/e' (Lateral) 9.6 <=8.0 MV E/e' (Average) 12.2 Tricuspid Valve Name Value Normal TV Regurgitation Doppler TR Peak Velocity 245 cm/s TR Peak Gradient 24 mmHg Estimated PAP/RSVP RA Pressure 5 mmHg <=5 PA Systolic Pressure 29 mmHg <36 RV Systolic Pressure 29 mmHg <36 Aorta Name Value Normal Ascending Aorta Ao Root Diameter (MM) 3.6 cm Ao Root Diam Index (MM) 2.1 cm/m2 Aortic Valve Name Value Normal AV Doppler AV Peak Velocity 141 cm/s AV Peak Gradient 8 mmHg AV Mean Gradient 4 mmHg AV VTI 25 cm AV Area (Cont Eq VTI) 2.2 cm2 >=3.0 AV Area (Cont Eq Bakari) 2.1 cm2 AV Regurgitation 2D LVOT Area 3.1 cm2 Ventricles Name Value Normal LV Dimensions 2D/MM IVS Diastolic Thickness (2D) 1.0 cm 0.6-1.0 LVID Diastole (2D) 4.1 cm 3.8-5.2 LVIW Diastolic Thickness (2D) 0.9 cm 0.6-0.9 LVID Systole (2D) 3.5 cm 2.2-3.5 LVOT Diameter 2.0 cm LV Mass (2D Cubed) 121.40 g 67.00-162.00 LV Mass Index (2D Cubed) 72 g/m2 43-95 Relative Wall Thickness (2D) 0.43 LV Fractional Shortening/Ejection Fraction 2D/MM LV Fractional Shortening (2D) 16 % 27-45 LV EF (2D Teicholz) 35 % 54-74 LV Diastolic Volume (4C MOD) 112 ml LV EF (4C MOD) 55 % LV Diastolic Volume (2C MOD) 92 ml LV EF (2C MOD) 41 % LV Diastolic Volume (BP MOD) 106 ml 46-106 LV Diastolic Volume Index (BP MOD) 62 ml/m2 29-61 LV Systolic Volume (BP MOD) 53 ml 14-42 LV Systolic Volume Index (BP MOD) 31 ml/m2 8-24 LV EF (BP MOD) 50 % 54-74 LV Diastolic Length (4C) 7.9 cm LV Systolic Length (4C) 7.0 cm LV Stroke Volume (4C MOD) 61 ml Atria Name Value Normal LA Dimensions LA Volume (4C A-L) 51 ml LA Volume (BP A-L) 48 ml RA Dimensions RA Area (4C) 13.0 cm2 <=18.0 EchoPAC Name Value Normal JESSE AA peak sys SL (AWMA) 15.6 % AAS peak sys SL (AWMA) 8.9 % AI peak sys SL (AWMA) 16.5 % AL peak sys SL (AWMA) 11.5 % AP peak sys SL (AWMA) 8.7 % peak sys SL (AWMA) 13.2 % AVC (AWMA) 434 ms BA peak sys SL (AWMA) 14.1 % BAS peak sys SL (AWMA) 7.6 % BI peak sys SL (AWMA) 13.4 % BL peak sys SL (AWMA) 16.4 % BP peak sys SL (AWMA) 13.5 % BS peak sys SL (AWMA) 14.3 % G peak SL(A2C) (AWMA) 15.5 % G peak SL(A4C) (AWMA) 13.5 % G peak SL(APLAX) (AWMA) 9.1 % G peak SL(Avg) (AWMA) 12.7 % MA peak sys SL (AWMA) 16.5 % MAS peak sys SL (AWMA) 9.6 % ND peak sys SL (AWMA) 15.6 % ML peak sys SL (AWMA) 13.5 % MP peak sys SL (AWMA) 12.2 % MS peak sys SL (AWMA) 15.0 % Report Signatures
--- OUTSIDE RECORDS SUMMARY | 2024-12-16 10:37 | XMS_ITS | Clinical Summary ---
Author Organization [facility] Address [address] [place] [address] Care Team Providers Care Border Inspector Name Role Phone Unavailable Primary Care Provider Unavailabl e Source Comments [facility],non-owned Affiliates and Associated Physician Practices is amultiple site organization consisting of ambulatory clinics and hospital sitesin [place], [place], [place] and [place]. This disclosure is being madepursuant to the Care Everywhere program and may not contain all information available regarding this patient. Last updated 18.[facility] Allergies No known active allergies Medications * Be aware that medications may not be up to date on this document. Alwaysverify current medications with the patient. Medication Sig Dispensed Refills Start Date End Date Status cefdinir (OMNICEF) 300 MG capsule TAKE 1 CAPSULE BY MOUTH TWICE A DAY 0 02/05/2018 Active DEXILANT 60 MG capsule Take 60 mg by mouth once daily 0 03/08/2018 Active metFORMIN (GLUCOPHAGE) 500 MG tablet TAKE ONE-HALF TABLET BY MOUTH IN THE MORNING 0 01/21/2018 Active metoprolol succinate XL 24hr (TOPROL XL) 25 MG tablet TAKE 1 TABLET BY MOUTH TWICE DAILY. IF TOO DROWSY, DECREASE TO ONCE DAILY DIRECTED. 0 02/21/2018 Active omeprazole (PRILOSEC) 20 MG capsule Take 20 mg by mouth once daily 0 02/21/2018 Active pravastatin (PRAVACHOL) 40 MG tablet TAKE ONE TABLET BY MOUTH ONCE DAILY AT BEDTIME. 0 01/21/2018 Active predniSONE (DELTASONE) 20 MG tablet TAKE 1 TABLET BY MOUTH EVERY MORNING FOR 5 DAYS *START 02/21/18* 0 02/20/2018 Active raNITIdine (ZANTAC) 150 MG tablet TAKE 1 TABLET BY MOUTH EVERY DAY IN THE MORNING 0 03/08/2018 Active SHINGRIX 50 MCG SUSR injection 01/30/2018 Active Social History Tobacco Use Types Packs/Day Years Used Date Smoking Tobacco: Never Assessed Sex and Gender Information Value Date Recorded Sex Assigned at Not on file Gender Identity Not on file Sexual Orientation Not on file Last Filed Vital Signs Vital Sign Reading Time Taken Comments Blood Pressure 132/84 04/01/2018 2:43 PM CDT Pulse 81 04/01/2018 2:43 PM CDT Temperature - - Respiratory Rate 18 04/01/2018 2:43 PM CDT Oxygen Saturation 97% 04/01/2018 2:43 PM CDT Inhaled Oxygen Concentration - - Weight 72.9 kg (160 lb 12.8 oz) 04/01/2018 2:43 PM CDT Height 154.9 cm (5' 1 ) 04/01/2018 2:43 PM CDT Body Mass Index 30.38 04/01/2018 2:43 PM CDT Plan of Treatment Health Maintenance Due Date Last Done Comments BONE DENSITY TESTING 1945 MEDICARE AWV 12 MONTHS 1945 HEPATITIS C SCREENING 07/09/1964 DTAP/TDAP/TD VACCINES (1 - Tdap) 1965 PNEUMOCOCCAL VACCINE 50+ (1 of 1 - PCV) 1996 ZOSTER VACCINE (1 of 2) 1996 Respiratory Syncytial Virus (RSV) Vaccine Pt: or over 60 yrs (1 - 1-dose 75+ series) 2021 COVID-19 VACCINE ( - 2023-2 5 season) 2024 INFLUENZA VACCINE (#1) 2024 DEPRESSION SCREENING 09/17/2024 HEPATITIS B VACCINE Aged Out No longe r eligible based on patient's age to complete this topic HIB VACCINE Aged Out No longer eligi ble based on patient's age to complete this topic HPV VACCINE Aged Out No longer eligi ble based on patient's age to complete this topic MENINGOCOCCAL (Group B) VACC INE SHARED DECISION-MAKING Aged Out No longer eligibl e based on patient's age to complete this topic MENINGOCOCCAL GROUPS A/C/Y/W VACCINE Aged Out No longer eligible b ased on patient's age to complete this topic
--- OUTSIDE RECORDS SUMMARY | 2024-12-16 10:37 | XMS_ITS | Clinical Summary ---
Author Organization [facility] Address [address] [place] [address] Care Team Providers Care Heel Attacher Name Role Phone Ami Underwood PA-C Primary Care Provider [phone] Allergies Active Allergy Reactions Criticality Noted Date Comments Meloxicam Shortness of Breath High 01/28/2023 Medications albuterol sulfate HFA 108 (90 Base) MCG/ACT inhaler Inhale 2 puffs into the lungs every 4 (four) hours as needed for Wheezing or Shortness of breath. 3 Active atorvastatin (LIPITOR) 40 MG tablet Take 1 tablet (40 mg total) by mouth nightly at bedtime. 3 Active benzonatate (TESSALON) 100 MG capsule Take 1 capsule (100 mg total) by mouth 3 (three) times daily as needed for Cough. 3 Active Cholecalciferol (VITAMIN D3) 25 MCG (1000 UT) Cap Take 1,000 Units by mouth daily. Active furosemide (LASIX) 40 MG tablet Take 1 tablet (40 mg total) by mouth daily. 3 Active Glucosamine-Cho ndroitin (OSTEO BI-FLEX REGULAR STRENGTH) 250-200 MG Tab Take 2 tablets by mouth daily. Active metFORMIN ER (GLUCOPHAGE-XR) 500 MG 24 hr tablet Take 1 tablet (500 mg total) by mouth 2 (two) times daily. 3 Active metoprolol succinate ER (TOPROL-XL) 25 MG 24 hr tablet Take 1 tablet (25 mg total) by mouth daily. Active montelukast (SINGULAIR) 10 MG tablet Take 1 tablet (10 mg total) by mouth daily. 3 Active pantoprazole EC (PROTONIX) 40 MG tablet Take 1 tablet (40 mg total) by mouth 2 (two) times daily. 3 Active potassium chloride CR (KLOR-CON M) 20 MEQ tablet Take 1 tablet (20 mEq total) by mouth daily. 3 Active B Complex Cap capsule Take 1 capsule by mouth daily. Active vitamin C (ASCORBIC ACID) 1000 MG tablet Take 1 tablet (1,000 mg total) by mouth daily. Active LUTEIN OR Take 1 tablet by mouth daily. Patient is unsure of dose Active dextromethorpha n-guaiFENesin ER (MUCINEX DM) 30-600 MG TABLET SR 12 HR 12 hr tablet Take 1 tablet by mouth every 12 (twelve) hours as needed (cough). 28 tablet 3 Active apixaban (ELIQUIS) 5 MG tablet Take 2 tablets (10 mg total) by mouth 2 (two) times daily for 7 days, then take 1 tablet (5 mg total) by mouth 2 (two) times daily. 60 tablet 3 Active apixaban (ELIQUIS) 5 MG tablet Take 1 tablet (5 mg total) by mouth 2 (two) times daily. 14 tablet 3 Active predniSONE (DELTASONE) 10 mg tablet Take 4 tabs x3 days, then 3 tabs x3 days, then 2 tabs x3 days, then 1 tab x3 days then stop 30 tablet 3 Active Active Problems Problem Noted Date Diagnosed Date PE (pulmonary thromboembolism) ([facility]) 01/28/2023 Pes cavus 06/21/2017 Capsulitis 06/14/2017 Bunion, right 06/11/2017 Pain of right heel 06/11/2017 Resolved Problems Problem Noted Date Diagnosed Date Resolved Date Encounter for preventive health examination 06/05/2017 02/05/2023 Family History Medical History Relation Comments Breast Cancer Other Relation Status Comments Other Alive Social History Tobacco Use Types Packs/Day Years Used Date Smoking Tobacco: Former Cigarettes 1 15 Smokeless Tobacco: Never Tobacco Cessation:Counseling Given: Not Answered Humiliation, Afraid, Rape, and Kick questionnair e Answer Date Recorded Within the last year, have y ou been afraid of your partner or ex-partner? No 01/28/2023 Within the last year, have y ou been humiliated or emotionally abused in other ways by your partner or ex-partner? No Within the last year, have y ou been kicked, hit, slapped, or otherwise physically hurt by your partner or ex-partner? No 01/28/2023 Within the last year, have y ou been raped or forced to have any kind of sexual activity by your partner or ex-partner? No 01/28/2023 Overall Financial Resource Strain (CARDIA) Answe r Date Recorded How hard is it for you to pa y for the very basics like food, housing, medical care, and heating? Not hard at all 01/28/2023 Hunger Vital Sign Answer Date Recorded Within the past 12 months, y ou worried that your food would run out before you got the money to buy more. Never true 01/29/20 23 Within the past 12 months, t he food you bought just didn't last and you didn't have money to get more. Never true 01/28/2023 PRAPARE - Transportation Answer Date Re corded In the past 12 months, has l ack of transportation kept you from medical appointments or from getting medications? No 01/15 In the past 12 months, has l ack of transportation kept you from meetings, work, or from getting things needed for daily living? No 01/28/2023 Housing Stability Vital Sign Answer Gordon e Recorded In the last 12 months, was t here a time when you were not able to pay the mortgage or rent on time? No 01/28/2023 In the last 12 months, how many places have you lived? 1 01/28/2023 In the last 12 months, was t here a time when you did not have a steady place to sleep or slept in a usp (including now)? No 01/28/2023 Comments Unknown Sex and Gender Information Value Date Recorded Sex Assigned at Not on file Legal Sex Female 7:41 PM CDT Gender Identity Not on file Sexual Orientation Not on file Last Filed Vital Signs Vital Sign Reading Time Taken Comments Blood Pressure 128/78 01/30/2023 11:53 AM CDT Pulse 84 01/30/2023 11:53 AM CDT Temperature 36.6 C (97.8 F) 01/30/2023 11:53 AM CDT Respiratory Rate 18 01/30/2023 11:53 AM CDT Oxygen Saturation 93% 01/30/2023 11:53 AM CDT Inhaled Oxygen Concentration - - Weight 69.2 kg (152 lb 8.9 oz) 01/30/2023 1:29 A M CDT Height 154.9 cm (5' 1 ) 01/28/2023 2:24 PM CDT Body Mass Index 28.83 01/28/2023 2:24 PM CDT Plan of Treatment Health Maintenance Due Date Last Done Comments Hepatitis C 1963 Annual Medicare Wellness Visit 2011 Dexa Scan (General) 2011 Zoster Vaccines (2 of 3) 07/01/2018 05/06/2018, 01/15 RSV Immunization or 60+ Years (1 - 1-dose 75+ series) 2021 DTaP, Tdap and Td Vaccines (2 - Td or Tdap) 11/06/2021 11/06/2011 COVID-19 Vaccine ( - season) 2024 06/13/2022, 07/29/2021, 10/20/2020 Influenza Adult (#1) 2024 06/01/2022, 05/23/2019, 05/30/2018, Additional history exists PHQ-2 (Physician [place]) 09/17/2024 Pneumococcal Vaccine: 65+ Years Completed 03/24/2017, 07/29/2015, 07/11/2005, Additional history exists Meningococcal B Vaccine Aged Out No l onger eligible based on patient's age to complete this topic Meningococcal Vaccine Aged Out No romain gage eligible based on patient's age to complete this topic RSV Immunizations Under 20 Months Aged Out No longer eligible based on patient's age to complete this topic Insurance MEDICARE [facility] [employer] Advance Directives Documents on File Type Date Recorded Patient Acls Specialist Expl anation DNR (Do Not Resuscitate) Documentation 03/28/2013 12:00 AM DO NOT RESUSCITATE * Full Code (Latest Code Status on File) Date Activated Date Inactivated Comments 01/28/2023 1:17 PM 01/30/2023 6:03 PM Care Teams Heel Attacher Relationship Specialty Start Date End Date Ami Underwood PA-C [address] [place] [address] [address] [place] [address] PCP - General PHYSICIAN JIG GRINDER SET UP OPERATOR 01/28/23
--- OUTSIDE RECORDS SUMMARY | 2024-12-16 10:37 | XMS_ITS ---
Author Organization [facility] Address [address] [place] [address] Care Team Providers Care Lasting Room Machine Operator Name Role Phone Bridgett Underwood Primary Care Provider Unavailab le Cynthia Peralta Unavailable [phone] REASON FOR VISIT records Encounters Encounter Location Date Provider Diagnosis [facility] [address] [place] [address] 06/04/2024 Cynthia Peralta Plan Of Treatment No Information Progress Notes * Jenni HERBERTDOB: [birth year] (78 yo F)Acc No.[id number]:06/04/2024 Patient: Krissy Jenni FOSTER :1945 A ge:78 Y S ex:Female Address:[address], [address], [place], [address] * true * Date: Generated for Printi ng/Faxing/eTransmitting on: 0 12/16/2024 10:37 AM CDT
--- OUTSIDE RECORDS SUMMARY | 2024-12-16 10:37 | XMS_ITS ---
Author Organization [facility] Address [address] [place] [address] Care Team Providers Care Sign Hanger Supervisor Name Role Phone Bridgett Underwood Primary Care Provider Unavailab le Cynthia Peralta Unavailable [phone] Encounters Encounter Location Date Provider Diagnosis [facility] [address] [place] [address] 07/09/2024 Cynthia Peralta Plan Of Treatment No Information Progress Notes * Jenni HERBERTDOB: [birth year] (79 yo F)Acc No.[id number]:07/09/2024 Patient: Krissy Jenni FOSTER :1945 A ge:78 Y S ex:Female Address:[address], [address], [place], [address] * true * Date: Generated for Printi ng/Faxing/eTransmitting on: 0 12/16/2024 10:36 AM CDT
--- OUTSIDE RECORDS SUMMARY | 2024-12-16 10:37 | XMS_ITS | Referral Summary ---
Author Organization [facility] Address [address] [place] [address] Care Team Providers Care Group Captain Name Role Phone Ami Underwood Primary Care Provider [phone] Allergies Active Allergy Reactions Criticality Noted Date Comments Naproxen Other (See comments) Low 05/27/2020 Pt stated that her face was puffy. Meloxicam Swollen tongue,Short ness of breath High 05/27/2020 Pt stated she also felt tingling around the outside of mouth. Medications multivitamin capsule Take 1 capsule by mouth daily Active montelukast (SINGULAIR) 10 mg tablet Take 1 tablet (10 mg total) by mouth nightly 30 tablet 11 0 06/15/20 99 Active albuterol HFA (PROVENTIL HFA,VENTOLIN HFA,PROAIR HFA) 90 mcg/actuation inhaler Inhale 2 puffs every 6 (six) hours as needed for wheezing Active Entresto 24-26 mg tablet Take 1 tablet by mouth 2 (two) times a day 3 Active Eliquis 5 mg tablet Take 1 tablet (5 mg total) by mouth 2 (two) times a day Active Farxiga 10 mg tablet Take 1 tablet (10 mg total) by mouth daily 3 Active spironolactone (ALDACTONE) 25 mg tablet Take 1 tablet (25 mg total) by mouth daily 3 Active atorvastatin (LIPITOR) 40 mg tablet Take 1 tablet (40 mg total) by mouth daily Active metFORMIN XR (GLUCOPHAGE XR) 500 mg 24 hr tablet Take 1 tablet (500 mg total) by mouth 2 (two) times a day 3 Active Symbicort 160-4.5 mcg/actuation inhaler Inhale 2 puffs 2 (two) times a day 3 Active potassium chloride ER 20 mEq CR tablet Take 1 tablet (20 mEq total) by mouth daily Active LUTEIN ORAL Take 1 tablet by mouth daily Active ascorbic acid (VITAMIN C) 1,000 mg tablet Take 1 tablet (1,000 mg total) by mouth daily Active glucosamine-cho ndroitin 250-200 mg tablet Take 2 tablets by mouth daily Active aspirin 81 mg enteric coated tablet Take 1 tablet (81 mg total) by mouth daily 30 tablet 11 3 Active Additional Information Patient not taking.Reported on 06/25/2023 lutein-zeaxanth in 25-5 mg capsule Take 1 capsule by mouth daily Active potassium citrate 99 mg capsule Take by mouth daily Active cholecalciferol (Vitamin D3) 5,000 unit tablet Take 1 tablet (5,000 Units total) by mouth daily Active pantoprazole DR (PROTONIX) 40 mg EC tablet Take 1 tablet by mouth twice daily 30 tablet 4 Active metoprolol XL (TOPROL-XL) 25 mg extended release tablet Take 1 tablet by mouth once daily 30 tablet 4 Active furosemide (LASIX) 40 mg tablet Take 1 tablet by mouth once daily 30 tablet 3 4 Active Active Problems Problem Noted Date Diagnosed Date 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 Quit smoking many years ago. Cough 05/27/2020 Assessment & Plan (07/22/2020 12:42 PM CALL CENTER DISPATCHER): Normal spirometry, lung volumes, diffusion, exercise oximetry. There was some bronchodilator response. Consider cough variant asthma. Rhinitis, postnasal drip, cough variant asthma, esophageal reflux, antihypertensive therapy, chronic cough following a lower respiratory tract infection, tracheomalacia, eosinophilic bronchitis, occult endobronchial pathology, vocal cord dysfunction syndrome. Seems to be doing well today. She has albuterol, Nasacort, Singulair home radiate to go up for symptoms recur. Methacholine challenge testing was not done due to COVID restrictions. Currently treated for reflux. Assessment & Plan (05/27/2020 12:34 PM CDT): Rhinitis, postnasal drip, cough variant asthma, esophageal reflux, antihypertensive therapy, chronic cough following a lower respiratory tract infection, tracheomalacia, eosinophilic bronchitis, occult endobronchial pathology, vocal cord dysfunction syndrome Continue intranasal corticosteroid. Sample of Breo 200. Ideally would like to get a methacholine challenge test pending COVID -19 restrictions being lifted. Schedule pulmonary function test, [address] Singulair might be a nice drug for possible cough variant asthma. Further recommendations i.e. sinus imaging, allergy testing, bronchoscopy pending re-evaluation SOB (shortness of breath) 04/29/2020 Bronchitis 04/29/2020 Social History Tobacco Use Types Packs/Day Years Used Date Smoking Tobacco: Former Cigarettes 0.1 20 1 0 - 1989 Smokeless Tobacco: Never Tobacco Cessation:Counseling Given: Yes Comments:One pack a day per pt. AUDIT-C Answer Date Recorded Q1: How often do you have a drink containing alcohol? Never 06/26/2023 Q2: How many drinks containi ng alcohol do you have on a typical day when you are drinking? Patient does not drink Q3: How often do you have si x or more drinks on one occasion? Never 06/26/2023 Personal Safety Answer Date Recorded Getting School Help Needed Not on file 07/06 Comments Unknown Sex and Gender Information Value Date Recorded Sex Assigned at Not on file Legal Sex Female 1:48 PM CDT Gender Identity Not on file Sexual Orientation Not on file Last Filed Vital Signs Vital Sign Reading Time Taken Comments Blood Pressure 115/58 06/26/2023 1:10 PM CDT Pulse 74 06/26/2023 1:10 PM CDT Temperature 36.3 C (97.3 F) 07/22/2020 12:30 PM CALL CENTER DISPATCHER Respiratory Rate 21 06/26/2023 1:10 PM CDT Oxygen Saturation 95% 06/26/2023 1:10 PM CDT Inhaled Oxygen Concentration - - Weight 67.6 kg (149 lb) 06/26/2023 8:36 AM CDT Height 157.5 cm (5' 2 ) 06/26/2023 8:36 AM CDT Body Mass Index 27.25 06/26/2023 8:36 AM CDT Plan of Treatment Not on file Insurance MEDICARE [facility] [place] [id number] MEDICARE [facility] [place] [address] Care Teams Group Captain Relationship Specialty Start Date End Date Ami Underwood PA [address] [place] [id number] PCP - General Family Practice 06/15/23
--- OUTSIDE RECORDS SUMMARY | 2024-12-16 10:37 | XMS_ITS ---
Author Organization [facility] Address [address] [place] [address] Care Team Providers Care Program Counselor Name Role Phone Bridgett Underwood Primary Care Provider Unavailab Cynthia Mcdonald Unavailable [phone] Allergies Allergen (clinical drug ingredient) Drug/Non Drug Allergy documented on EMR Reaction Allergy Type Onset Date Status meloxicam Meloxicam other reaction Drug Allergy Ac tive REASON FOR VISIT Chronic cough follow-up - some improvement with nasal rinses and Astelin Medications Medication SIG (Take, Route, Frequency, Duration) Notes Start Date End Date Status Lutein 20 MG 1 capsule with a vira l Orally Once a day Active Multi Complete - as directed Orally Active RABEprazole Sodium 20 MG 1 tablet after a meal Orally Once a day Active Potassium 99 MG 1 tablet Orally Once a day Active Vitamin D Active Albuterol Sulfate HFA 108 (90 Base) MCG/ACT Inhalation for 17 Days Active Symbicort 160-4.5 MCG/ACT Inhalation for 30 Days Active Azelastine HCl 137 MCG/SPRAY 2 sprays in each nostril Nasally Twice a day for 30 days Active Entresto 24-26 MG 1 tablet Orally Twic e a day Active Pantoprazole Sodium 40 MG 1 tablet Orall y Once a day Not-Taking Farxiga 10 MG 1 tablet Orally Once a day Active Spironolactone 25 MG 1 tablet Orally Active Atorvastatin Calcium 40 MG 1 tablet Oral ly Once a day Active Montelukast Sodium 10 MG 1 tablet Orally Once a day Active metFORMIN HCl 500 MG 1 tablet with a vira l Orally Once a day Active Social History Tobacco Use: Social History Observation Description Date Details (start date - stop date) Former Smoker NA - NA Tobacco Control (Standard) Question Answer Notes Tobacco use: Former smoker How long has it been since you last smoked? Shayan ter than 10 years Vital Signs Blood pressure systolic 109 mm Hg 07/09/20 24 Blood pressure diastolic 69 mm Hg 024 Height 61 in 07/09/2024 Weight 151.0 lbs 07/09/2024 BMI 28.53 kg/m2 07/09/2024 Oximetry 95 % 07/09/2024 Encounters Encounter Location Date Provider Diagnosis [facility] [address] [place] [address] 07/09/2024 Cynthia Peralta Moderate persistent asthma, uncomplicated J45.40 ; Chronic cough R05.3 ; Chronic rhinitis J31.0 and Gastro-esophageal reflux disease without esophagitis K21.9 Assessments Encounter Date Diagnosis (ICD Code) Assessment Notes Treatment Notes Treatment Clinical Notes Section Notes 07/09/2024 Moderate persistent asthma, uncomplicated (ICD-10 - J45.40) Request for records was sent to Dr. Gordon's office. Improvement with Symbicort and recommend continuing for now. ACT 16, but based on current URI. No changes at this time needed 07/09/2024 Chronic cough (ICD-10 - R05.3) Considerations for cough include post nasal drip, asthma, and GERD. She recently started rabeprazole and unclear if improvement over pantoprazole. We discussed that most likely cough is multifactorial. Continue PPI, sinus rinses and Astelin since overall improvement 07/09/2024 Chronic rhinitis (ICD-10 - J31.0) Skin testing at her initial visit was negative for aeroallergens. We discussed non allergic rhinitis including trigger factors of strong odors and changes in barometric pressure. 07/09/2024 Gastro-esophageal reflux disease without esophagitis (ICD-10 - K21.9) request for records sent to [facility]. Continue rabeprazole to treat GERD. 07/09/2024 Other Plan Of Treatment Medication Medication Name Sig Start Date Stop Date Notes Azelastine HCl 137 MCG/SPRAY 2 sprays in each nostril Nasally Twice a day for 30 days Treatment Notes Assessment Notes Moderate persistent asthma, uncomplicate d Request for records was sent to Dr. oGrdon's office. Improvement with Symbicort and recommend continuing for now. ACT 16, but based on current URI. No changes at this time needed Chronic cough Considerations for c ough include post nasal drip, asthma, and GERD. She recently started rabeprazole and unclear if improvement over pantoprazole. We discussed that most likely cough is multifactorial. Continue PPI, sinus rinses and Astelin since overall improvement Chronic rhinitis Skin testing at her initial visit was negative for aeroallergens. We discussed non allergic rhinitis including trigger factors of strong odors and changes in barometric pressure. Gastro-esophageal reflux dis ease without esophagitis request for records sent to [facility]. Continue rabeprazole to treat GERD. Next Appt Details Follow Up: 6 Months, Reason: Evaluation and Management Progress Notes * Jenni HERBERTDOB: [birth year] (78 yo F)Acc No.[id number]:07/09/2024 Progress Notes Patient: Jenni MCDONALD Provider: Gerald Peralta MD :1945 A ge:78 Y S ex:Female Date:07/09/2024 Address:[address] [place] [address], [id number] Pcp:Bridgett Underwood Subjective: * Chief Complaints: * C hronic cough follow-up - some improvement with nasal rinses and Astelin * HPI: * Introduction: I had the pleasure of seeing Gabriella Herbert, a 78 year old with congestive heart failure, diabetes non allergic rhinitis and recurrent cough presenting for f/u evaluation of cough. She was last evaluated 06-04-2024. She was evaluated by PCP yesterday for cough, sneezing, congestion and rhinorrhea which started 3 days ago. She was treated with Azithromycin and IM steroids. She is feeling better but continued cough. She is using albuterol. No fevers/chills. Prior to getting sick, she used sinus rinses and Astelin with improvement in the cough. She was also switched to a new PPI by her PCP. Jenni has a history of recurrent cough for about 10 years. Cough is productive in the am of sputum and continues throughout the day. Occurring throughout the year without regard to season. [place] food flares the cough. She was evaluated by Dr. Gordon and recommended allergy evaluation. PFTs were normal per her report. She started Symbicort a few years ago. Breo caused a raspy throat. Cough improves with inhalers, but does not resolve. She was treated with cefdinir and steroids April 2024 with improvement in the cough. She has a long history of GERD. She follows with GI, Dr. Parks and EGD was last performed December 2023 at [place]. She was diagnosed wtih a hiatal hernia at that time. She reports frequent congestion and post nasal drip. No animals in her home. Today, she reports no fevers, chills, night sweats or other constitutional symptoms. * ROS: A LLERGY: Positive p er the HPI and history, otherwise unremarkable.? S PECIAL SENSES: Positve for n one. C ONSTITUTIONAL: Positive for n one. E NT: Positive p er the HPI and history, otherwise unremarkable.? R ESPIRATORY: Positive p er the HPI and history, otherwise unremakable.? O PHTHALMOLOGY: Positive for p er the HPI and history, otherwise unremarkable. E NDOCRINOLOGY: Positive for n one. C ARDIOLOGY: Positive for n one. G ASTROENTEROLOGY: Positive for n one. U ROLOGY: Positive for n one. D ERMATOLOGY: Positive for p er the HPI and history, otherwise unremakable. N EUROLOGY: Positive for n one. H EMATOLOGY/LYMPH: Positive for n one. M USCULOSKELETAL: Positive for n one. P SYCHOLOGY: Positive for n one. A ll other review of systems per the HPI and history, otherwise unremarkable. * Medical History: * Surgical History: T onsillectomy 1955tubal ligation 1999cholecystectomy 1999 * Hospitalization/Major Diagno stic Procedure: s ee above * Family History: F ather: , Parkinsons. M other: , lymphoma, diagnosed with Cancer. * Social History: H ome description Basement: N o Any water damage in basement? N o Do you own any pets? Y es What kind(s)? (click all that apply) c ats Where do your pets sleep? o utside T obacco Control (Standard) Tobacco use: F ormer smoker How long has it been since you last smoked? G reater than 10 years * Medications: T akingRABEprazole Sodium 20 MG Tablet Delayed Release 1 tablet after a meal Orally Once a day Multi Complete - Capsule as directed Orally Lutein 20 MG Capsule 1 capsule with a meal Orally Once a day Vitamin D Potassium 99 MG Tablet 1 tablet Orally Once a day metFORMIN HCl 500 MG Tablet 1 tablet with a meal Orally Once a day Montelukast Sodium 10 MG Tablet 1 tablet Orally Once a day Atorvastatin Calcium 40 MG Tablet 1 tablet Orally Once a day Spironolactone 25 MG Tablet 1 tablet Orally Farxiga 10 MG Tablet 1 tablet Orally Once a day Entresto 24-26 MG Tablet 1 tablet Orally Twice a day Azelastine HCl 137 MCG/SPRAY Solution 2 sprays in each nostril Nasally Twice a day Symbicort 160-4.5 MCG/ACT Aerosol Inhalation Albuterol Sulfate HFA 108 (90 Base) MCG/ACT Aerosol Solution Inhalation Taking RABEprazole Sodium 20 MG Tablet Delayed Release 1 tablet after a meal Orally Once a day Taking Multi Complete - Capsule as directed Orally Taking Lutein 20 MG Capsule 1 capsule with a meal Orally Once a day Taking Vitamin D Taking Potassium 99 MG Tablet 1 tablet Orally Once a day Taking metFORMIN HCl 500 MG Tablet 1 tablet with a meal Orally Once a day Taking Montelukast Sodium 10 MG Tablet 1 tablet Orally Once a day Taking Atorvastatin Calcium 40 MG Tablet 1 tablet Orally Once a day Taking Spironolactone 25 MG Tablet 1 tablet Orally Taking Farxiga 10 MG Tablet 1 tablet Orally Once a day Taking Entresto 24-26 MG Tablet 1 tablet Orally Twice a day Taking Azelastine HCl 137 MCG/SPRAY Solution 2 sprays in each nostril Nasally Twice a day Taking Symbicort 160-4.5 MCG/ACT Aerosol Inhalation Taking Albuterol Sulfate HFA 108 (90 Base) MCG/ACT Aerosol Solution Inhalation Not-Taking/PRNPantoprazole Sodium 40 MG Tablet Delayed Release 1 tablet Orally Once a day Medication List reviewed and reconciled with the patientNot-Taking/PRN Pantoprazole Sodium 40 MG Tablet Delayed Release 1 tablet Orally Once a day Medication List reviewed and reconciled with the patient * Allergies: M eloxicam: other reactionno[Allergies Verified] Objective: * Vitals: B P:109/69mm Hg, HR:68/min, Pulse Oximetry:95%, ACT:16, Ht: 61 in, Wt: 151.0 lbs, BMI:28.53Index. * Examination: G eneral examination: General appearance: p leasant, well-developed, well-nourished. HEENT: c onjunctiva are clear bilaterally, no tenderness to palpation of the sinuses, TM's without evidence of acute infection, turbinates 2+ swollen and pale inferiorly bilaterally, clear rhinorrhea is present, no polyps noted, no septal perforation, posterior oropharynx is clear, no exudates, no tongue swelling, and uvula is midline. Oral cavity: n ormal, no lesions. Neck, thyroid : s upple, non-tender, no anterior cervical lymphadenopathy. Breasts : n ot performed. Heart: R RR, S1-S2, no murmurs, no rubs, no gallops. Lungs: c lear to auscultation and percussion in all lung rodriguez, no wheezes or crackles. Neurologic exam: u nremarkable. Skin: n ormal, no rash, dermatographism, urticaria, angioedema. Peripheral pulses: n ormal (2+) bilaterally. Back: n ormal. Extremities: n ormal ROM, no clubbing, no cyanosis, no edema. Genitalia: n ot performed. Assessment: * Assessment: 1. C hronic cough - R05.3 (Primary) 2 . M oderate persistent asthma, uncomplicated - J45.40 3 . C hronic rhinitis - J31.0 4 . G kanu-esophageal reflux disease without esophagitis - K21.9 Plan: * Treatment: 2. M oderate persistent asthma, uncomplicated Notes: Request for records was sent to Dr. Gordon's office. Improvement with Symbicort and recommend continuing for now. ACT 16, but based on current URI. No changes at this time needed 3. C hronic rhinitis Start Azelastine HCl Solution, 137 MCG/SPRAY, 2 sprays in each nostril, Nasally, Twice a day, 30 days, 1, Refills 3. Notes: Skin testing at her initial visit was negative for aeroallergens. We discussed non allergic rhinitis including trigger factors of strong odors and changes in barometric pressure. 4. G kanu-esophageal reflux disease without esophagitis Notes: request for records sent to [facility]. Continue rabeprazole to treat GERD. * Procedure Codes: 9 6160 PT-FOCUSED HLTH RISK [id number] DOC MEDS VERIFIED W/PT OR [id number] BMI<30 AND >=22 CALC & [id number] BP SCR PRFRM RCMDD DEFIND SCR INTVL * Preventive Medicine: Counseling: M edication instruction: W atch for side effects of prescribed medications, Nasal steroid/antihistamine instruction: avoid septum. E ducation: G ENERAL EDUCATION: Our staff spent an additional 30 minutes in direct contact with the patient educating them on their current diagnoses and proper treatment and prevention of symptoms and the proper use of medications. P atient education material sent to portal? Y es * Follow Up: 6 Months (Reason: Evaluation and Management) * Billing Information: * Visit Code: 96250 Office Visit, Est Pt., Level 4. Modifiers: 25 * Procedure Codes: 50999 PT-FOCUSED HLTH RISK ASSMT. G8427 DOC MEDS VERIFIED W/PT OR RE. G8420 BMI<30 AND >=22 CALC & DOCU. G8783 BP SCR PRFRM RCMDD DEFIND SCR INTVL. * Sign off status: Completed true * Provider: Gerald Peralta MD Date: Generated for Alexsandra sarkar/Prudence/Go on: 0 12/16/2024 10:37 AM CDT History and Physical Notes * HPI (History of Present Illness) Category Sub-Category Detail Notes Category Not es *Introduction I had the pleasure o f seeing Jenni Herbert, a 78 year old with congestive heart failure, diabetes non allergic rhinitis and recurrent cough presenting for f/u evaluation of cough. She was last evaluated 06-04-2024. She was evaluated by PCP yesterday for cough, sneezing, congestion and rhinorrhea which started 3 days ago. She was treated with Azithromycin and IM steroids. She is feeling better but continued cough. She is using albuterol. No fevers/chills. Prior to getting sick, she used sinus rinses and Astelin with improvement in the cough. She was also switched to a new PPI by her PCP. Jenni has a history of recurrent cough for about 10 years. Cough is productive in the am of sputum and continues throughout the day. Occurring throughout the year without regard to season. [place] food flares the cough. She was evaluated by Dr. Gordon and recommended allergy evaluation. PFTs were normal per her report. She started Symbicort a few years ago. Breo caused a raspy throat. Cough improves with inhalers, but does not resolve. She was treated with cefdinir and steroids April 2024 with improvement in the cough. She has a long history of GERD. She follows with GI, Dr. Parks and EGD was last performed December 2023 at [place]. She was diagnosed wtih a hiatal hernia at that time. She reports frequent congestion and post nasal drip. No animals in her home. Today, she reports no fevers, chills, night sweats or other constitutional symptoms Examination Category Sub-Category Detail Notes Category Not es General examination HEENT: conjunctiva are clear bilaterally, no tenderness to palpation of the sinuses, TM's without evidence of acute infection, turbinates 2+ swollen and pale inferiorly bilaterally, clear rhinorrhea is present, no polyps noted, no septal perforation, posterior oropharynx is clear, no exudates, no tongue swelling, and uvula is midline Neck, thyroid : supple, non-tender, no anterior cervical lymphadenopathy Heart: RRR, S1-S2, no murmu rs, no rubs, no gallops Lungs: clear to auscultatio n and percussion in all lung rodriguez, no wheezes or crackles Abdomen: Extremities: normal ROM, no clubb ing, no cyanosis, no edema General appearance: pleasant, well-devel oped, well-nourished Skin: normal, no rash, janiya matographism, urticaria, angioedema Neurologic exam: unremarkable Oral cavity: normal, no lesions Breasts : not performed Peripheral pulses: normal (2+) bilatera lly Back: normal Genitalia: not performed
--- OUTSIDE RECORDS SUMMARY | 2024-12-16 10:37 | XMS_ITS | Data Portability ---
Author Organization [facility], [id number] Address [address] [place] [address] Assessment No assessment recorded. Plan of Treatment Reminders Order Date Submit Date Provider Last Modified By Organization Details Last Modified Time Details Appointments Follow Up 15 2024 02:00P M LENORE GALLO MD Not available Not available Not available ANNUAL - EST 15 2024 10:15A M MANUEL ALTMAN Not available Not available Not available Lab clarke wet prep 2024 025 [facility] [id number], [address], [place], [address], 12/02/2024 17:53:27 Referral None record ed. Procedures None record ed. Surgeries None record ed. Imaging None record ed. Medication Orders clobet asol 0.05 % topica l ointme nt 2024 025 [facility], [id number], [address], 12/10/2024 10:57:16 estrad iol 0.01% (0.1 mg/gra m) vagina l cream 2024 025 [facility] 435, [id number], [address], 11/27/2024 14:48:54 triamc inolon e aceton chuy 0.1 % topica l cream 2024 025 [facility] 435, [address] [facility] [address] [facility], [place], [address], 11/27/2024 14:48:53 nystat in 100,00 0 unit/g cris topica l cream 2024 025 [facility] 435, [address] [facility] [address], [place], [address], 11/27/2024 14:48:54 Patient TargetsNo targets recorded. Patient Instructions Encounter Date Encounter Id Patient Instructions Last Modified By Organization Details Last Modified Time 11/27/2024 [id number] Use the estradio l every night for 5 nights and then use 1-2 times per week to help with vaginal dryness and skin health. Use the nystatin once per week to help prevent yeast infections. You can increase it to 2times a day for a flare up of yeast symptoms. Limit the use of the triamcinolone cream. If the skin is really irritated and inflamed, you can use it 2 times a day for 2 weeks. If that doesnt relieve the issues, call the office. [email or web address] Not available 11/27/2024 14:51:55 Patient voiced understanding and all questions were addressed. [email or web address] Not available 11/27/2024 14:50:00 Reason for Referral None Reported. Results Created Date Observation Date Name Description Value Unit Range Abnormal Flag Note LastModifiedBy Organization Detail LastModifiedTime 12/03/19 25 12/02/2024 clarke wet prep Hyphae Presen t Not Available [id number], [place], [address], 12/02/2024 17:51:54 Result Notes None recorded. Problems Name Problem SNOMED Code Status Onset Date Resolution Date Notes Provider Name and Address Organization Details Recorded Time Mammograph y abnormal 475667935 Active 2004 Monae abreu [facility] 13:31:45 Acid reflux 272939227 Active 2024 Monae abreu [place] - [facility] 5 13:32:04 Osteoarthr itis 146916282 Active 2024 Monae Monk null, [place] - [facility] 5 13:32:14 Type 2 diabetes mellitus 83515592 Active 2010 Monae Monk null[place] [facility] 5 13:32:36 Hyperchole sterolemia 26228057 Active 2024 Monae Joper null, [place] - [facility] 5 13:32:53 Heart disease 19936519 Active 2016 had some mild chest pain-had w/u and apparently mild valve problem seen-will have routine echocardio grams for f/u to monitor-pu t on Metoprolol Monae Monk null, [place] - [facility] 5 13:34:32 Hernia of abdominal cavity 19143228 Active 2017 hiatal hernia-pal pable on abdominal exam Monae Monk null, [place] - [facility] 5 13:34:47 Atrophic vaginitis 66222422 Active 2024 OLEG ACEVEDO MD [address], [place], [address], [facility] 5 14:43:09 Dyspareuni a 88184338 Active 2024 OLEG ACEVEDO MD [address], [place], [place], [address], [facility] - [facility] 5 14:43:16 Candidiasi s of vagina 93257872 Active 2024 OLEG ACEVEDO MD [address], [place], [place], [address], [facility] 5 14:43:37 Vulvitis 28789196 Active 2024 OLEG ACEVEDO MD [address], [place], [address] [facility] [place] [facility] 14:47:52 Problem Notes None recorded. Procedures Surgical History Date Name Laterality Status Provider Name and Address Organization Details Recorded Time 07/22/20 24 Date of Last Mammogram completed Monae Monk [place] [facility] 11/27/2024 13:37:11 01/16/20 21 endoscopy completed Monae Monk [place] [facility] 11/27/2024 13:42:01 09/17/19 20 extraction of cataract completed Monae Monk [place] [facility] 11/27/2024 13:40:30 09/17/19 18 [place]oscopy completed Monae Monk [place] [facility] 11/27/2024 13:41:56 07/18/20 17 Date of Last Colonoscopy completed Monae Monk [place] [facility] 11/27/2024 13:37:24 05/19/20 15 Date of Last Pap Smear completed Monae Monk [place] [facility] 11/27/2024 13:36:47 09/17/19 06 biopsy of breast completed Monae Monk [place] [facility] 11/27/2024 13:40:11 09/17/19 05 hernia repair completed Monae Monk [place] [facility] 11/27/2024 13:42:33 09/17/19 04 cholecystectomy [place] Monae Monk [place] [facility] 11/27/2024 13:42:20 09/17/18 78 Tubal Ligation completed Monae Monk [place] [facility] 11/27/2024 13:43:05 09/17/18 75 cone biopsy of cervix completed Monae Monk [place] [facility] 11/27/2024 13:41:15 09/17/18 70 Dilation and Curettage completed Monae Monk [place] [facility] 11/27/2024 13:41:37 Removal of adenoids completed Monae Monk [place] [facility] 11/27/2024 13:39:59 [facility] 11/27/2024 13:42:45 tonsillectomy completed Monae [facility] 11/27/2024 13:42:56 Imaging Results None recorded. Procedure Notes None recorded. Medical Equipment None Reported. Allergies Allergen ID Allergen Name Allergen Category Reaction Reaction Severity Criticality Documentation Date Start Date Code Code System Note Provider Name and Address Organization Details Recorded Time 159502 meloxicam medicatio n swelling Not available Not available 11/27/2024 70610 [facility] 13:[facility]:32 235433 Non-stero idal anti-infl ammatory agent (product) medicatio n swelling Not available Not available 11/27/2024 05246 005 SNOMED Monaegómez Monk [facility] 13:35:44 Medications Name Sig Start Date Stop Date Status Note LastModified by Organization Details LastModified Time furosemide 40 mg tablet TAKE 1 TABLET BY MOUTH ONCE DAILY active Not Available Not Available No t Available atorvastati n 40 mg tablet TAKE 1 TABLET BY MOUTH ONCE DAILY active Not Available Not Available No t Available rabeprazole 20 mg tablet,payton yed release TAKE 1 TABLET BY MOUTH TWICE DAILY active Not Available Not Available No t Available azithromyci n 250 mg tablet TAKE 2 TABLETS BY MOUTH ON DAY 1, AND THEN TAKE 1 TABLET BY MOUTH ONCE A DAY ON DAY 2 THROUGH DAY 5 11/27 completed Not Available Not Available Not Available prednisone 20 mg tablet TAKE 1 TABLET BY MOUTH ONCE DAILY 11/27 completed Not Available Not Available Not Available penicillin V potassium 500 mg tablet TAKE 1 TABLET BY MOUTH 4 TIMES DAILY 11/27 completed Not Available Not Available Not Available triamcinolo ne acetonide 0.1 % topical cream APPLY A THIN LAYER OF CREAM EXTERNALL Y TO AFFECTED AREA 1 TO 2 TIMES DAILY FOR UP TO 14 DAYS active Not Available Not Available No t Available spironolact one 25 mg tablet TAKE 1 TABLET BY MOUTH ONCE DAILY active Not Available Not Available No t Available carvedilol 3.125 mg tablet TAKE 1 TABLET BY MOUTH EVERY 12 HOURS WITH A MEAL OR FOOD active Not Available Not Available No t Available potassium chloride ER 20 mEq tablet,exte nded release(par t/cryst) TAKE 1 TABLET BY MOUTH ONCE DAILY active Not Available Not Available No t Available pantoprazol e 40 mg tablet,payton yed release TAKE 1 TABLET BY MOUTH TWICE DAILY 11/27 completed Not Available Not Available Not Available nystatin 100,000 unit/gram topical cream APPLY TO VULVAR AND VAGINAL AREA ONCE PER WEEK FOR PREVENTIO N. MAY USE TWICE DAILY FOR 7 DAYS FOR FLARE UP active Not Available Not Available No t Available nystatin-tr iamcinolone 100,000 unit/g-0.1 % topical cream APPLY CREAM EXTERNALL Y TO AFFECTED AREA 2 TO 3 TIMES DAILY FOR 2 WEEKS active Not Available Not Available No t Available montelukast 10 mg tablet TAKE 1 TABLET BY MOUTH ONCE DAILY active Not Available Not Available No t Available codeine 10 mg-guaifene sin 100 mg/5 mL oral liquid TAKE 5 TO 10 ML BY MOUTH EVERY 6 HOURS NEEDED FOR COUGH 11/27 completed Not Available Not Available Not Available metoprolol succinate ER 25 mg tablet,exte nded release 24 hr TAKE 1 TABLET BY MOUTH ONCE DAILY 11/27 completed Not Available Not Available Not Available clobetasol 0.05 % topical ointment APPLY A THIN LAYER OF OINTMENT TOPICALLY TO AFFECTED AREA TWICE DAILY active Not Available Not Available No t Available azelastine 137 mcg (0.1 %) nasal spray USE 2 SPRAY(S) IN EACH NOSTRIL TWICE DAILY active Not Available Not Available No t Available estradiol 0.01% (0.1 mg/gram) vaginal cream USE 1 GRAM VAGINALLY AT BEDTIME FOR 5 NIGHTS THEN 2-3 TIMES PER WEEK active Not Available Not Available No t Available albuterol sulfate HFA 90 mcg/actuati on aerosol inhaler INHALE 2 PUFFS BY MOUTH EVERY 4 HOURS NEEDED FOR SHORTNESS OF BREATH AND FOR WHEEZING active Not Available Not Available No t Available cefdinir 300 mg capsule TAKE 1 CAPSULE BY MOUTH EVERY 12 HOURS 11/27 completed Not Available Not Available Not Available metformin ER 500 mg tablet,exte nded release 24 hr TAKE 1 TABLET BY MOUTH TWICE DAILY active Not Available Not Available No t Available Contour Test Strips USE TO TEST ONCE DAILY active Not Available Not Available No t Available Advair HFA 115 mcg-21 mcg/actuati on aerosol inhaler INHALE 2 PUFFS TWICE DAILY 11/27 completed Not Available Not Available Not Available Symbicort 160 mcg-4.5 mcg/actuati on HFA aerosol inhaler INHALE 2 PUFFS BY MOUTH TWICE DAILY active Not Available Not Available No t Available Farxiga 10 mg tablet TAKE 1 TABLET BY MOUTH ONCE DAILY active Not Available Not Available No t Available Entresto 24 mg-26 mg tablet TAKE 1 TABLET BY MOUTH TWICE DAILY active Not Available Not Available No t Available Rybelsus 3 mg tablet TAKE 1 TABLET BY MOUTH ONCE DAILY active Not Available Not Available No t Available Vitals Date Recorded Body height Body mass index (BMI) Body weight Systolic blood pressure Diastolic blood pressure Provider Name and Address Organization Details Last Updated DateTime 11/27/2024 153.04 cm 28.3 kg/m2 71068.49 g 126 mm[Hg] 70 mm[Hg] Monae Monk [facility] 13:48:09 Date Recorded Body height Body mass index (BMI) Body weight Systolic blood pressure Diastolic blood pressure Provider Name and Address Organization Details Last Updated DateTime 12/10/2024 153.04 cm 28.1 kg/m2 95354.89 g 110 mm[Hg] 60 mm[Hg] Telly Barnhart [facility] 10:36:57 Social History Question Answer Notes LastModified by Organizat ion Details LastModified Time Tobacco Smoking Status Former Smoker Monae Monk [facility] [place] [place] [facility] 11/27/2024 13:48:17 Do You Have An Advance Directive? Yes Information not available 11/27/2024 What Is Your Level Of Alcohol Consumption? Occasional Information not available 11/27/2024 How Many Times Per Week Do You Consume Alcohol? Less Than 1 Time Per Week [email or web address] Information not available 11/27/2024 If You Are , What Was Your Level Of Alcohol Consumption Prior To ? None [email or web address] Information not available 11/27/2024 How Many Years Have You Consumed Alcohol? 10 [email or web address] Information not available 11/27/2024 What Is Your Level Of Caffeine Consumption? Moderate [email or web address] Information not available 11/27/2024 Are You Currently Employed? No Information not available 11/27/2024 What Type Of Diet Are You Following? REGULAR [email or web address] Information not available 11/27/2024 What Is Your Relationship Status? Information not available 11/27/2024 At What Age Did You Start Smoking Tobacco? 26 [email or web address] Information not available 11/27/2024 How Much Tobacco Do You Smoke? 1 PPD [email or web address] Information not available 11/27/2024 Do You Use Any Illicit Or Recreational Drugs? No [email or web address] Information not available 11/27/2024 Sex: Unknown Functional Status None recorded. Mental Status None recorded. Family History Relationship Description Onset Age of this Age Resolved Age Notes LastModified by Organization Details LastModified Time Mother Deep venous thrombosis [email or web address] Not available 12/10 10:37:02 Mother Malignant lymphoma [email or web address] Not available 2024 10:37:02 Mother Osteoporosis [email or web address] Not avai lable 11/27/2024 13:39:18 Mother Seizure disorder [email or web address] Not available 2024 10:37:02 Father Family history of malignant neoplasm of prostate 85 [email or web address] Not available 2024 10:37:02 Maternal Grandfather Malignant tumor of pancreas [email or web address] Not available 2024 10:37:02 Maternal Aunt Heart disease [email or web address] Not available 2024 10:37:02 Maternal Uncle Heart disease [email or web address] Not available 2024 10:37:02 Unspecified Relation Heart disease [email or web address] Not available 2024 10:37:02 Medical History Condition Response Cardiology-Other Y Gynecological History Statement/Question Response History of Fibroids N Date of Last Mammogram 07/22/2024 Current Control Method: Menopause History of Recurrent Ovarian Cysts N Age at first intercourse 18 If Post Menopausal, Age at Menopause 41 HPV Vaccine Not Completed Date of Last Colonoscopy 07/18/2017 Date of Last Diabetes Screening 09/17/19 25 Date of Last HPV Test 05/19/2015 Date of Last Cholesterol Screening 09/17 History of PCOS N History of Infertility N History of Vulvar Dysplasia N History of Cervical Dysplasia N Duration of Flow (days) 7 Age at Menarche 13 History of Endometriosis N Frequency of Cycle (Q days) 28 Sexually Active? Y History of Dysmenorrhea N Menses Monthly N Date of Last Pap Smear 05/19/2015 Sexual Problems? N History of Sexually Transmitted Infectio n N Obstetrics History GPAL:G 1 P 1 0 0 1 Type Value Full Term 1 Living 1 Total 1 Past Encounters Encounter ID Performer Location Encounter Start Date Encounter Closed Date Diagnosis/Indication Diagnosis SNOMED-CT Code Diagnosis ICD10 Code Diagnosis Note [id number] OLEG RODRIGUEZ RD, MD [id number] [facility] [address] [place] [address] 11/27/2024 13:37:19 11/27/2024 14:37:21 Atrophic vaginitis 97563036 N95.2 Use nystatin daily for prevention of yeast. Start vaginal estrogen. Dyspareunia 82444459 N94 .10 Candidiasis of vagina 72 154399 B37.31 Vulvitis 17537188 N76.2 [id number] LENORE GALLO MD [id number] [facility] [address] [place] [address] 12/10/2024 10:30:31 12/10/2024 11:03:38 Vulvitis 81561723 N76.2 stop all other meds, demonstrat ed how to use sparingly 2/d and see me in 2w. if cancels, drop to 1/d at that time. appears as contact reaction to me. use poise pads, but change if wet, as already doing for urine. stopped gurpreet softener w new dryer, and now using vinegar in rinse cycle of clothing, was BEFORE this started. Type 2 primitivo betes mellitus 56340965 E11.9 Health Concerns Section Related Observation LastModified by Organization Detai ls LastModified Time None Recorded Concern Status LastModified by Organization Details LastModified Time None Recorded Advance Directives Directive Y: Payers Encounter Date Sequence Insurance Name Policy Number Policy Najera Covered Member ID Najera Member ID Guarantor Name 11/27/2024 1 [place] Jenni Herbert [id number] Jenni Herbert 11/27/2024 2 [employer] (MEDICARE SUPPLEMENT) Jenni Herbert [id number] Jenni Herbert 12/10/2024 1 [place] Jenni Barnes Viktornarciso [id number] Jenni Piedad 12/10/2024 2 [employer] (MEDICARE SUPPLEMENT) Jenni Barnes Viktornarciso [id number] Jenni Piedad Notes Date Note Type Note Provider Name and Address Organization Details Recorded Time 11/27/2024 text/html This is a {{inse rt age 79#}} y/o female with LMP of {{DATE}}. She presents with complaints of : {{ possible yeast infection#}}She rates her symptoms as {{mild moderate* sev ere}}.These symptoms have been present for {{ yearsr#}}.She {{ADMITS* denies}} recent use of medications for this condition. She {{DOES* does not}} have additional complaints.She {{DOES* does not}} have a h/o vulvovaginitis previously.She {{HAS has not*}} been taking any antibiotics recently for another condition.The patient reports she {{HAS has not*}} been exposed to new chemicals of hygienic agents.She reports the following aggravating factors: {{ intercourse#}}. e reports the following alleiviating factors: {{ nystatin-triamcni lone#}}On farziga for sugars and has been worse. Using steriod every morning. NO ho of vag estrogen use. OLEG MATTHEWS MD [address] [facility] [address], [place], [address], [facility] 12/02/2024 17:53:30 12/10/2024 text/html burning was 6/10 prior to ADP meds, then burning worsened to 8/10. stopped the med and used vit A&D orange ointment, and states that does provide relief, but still w burning irritation and feels more internal too LENORE GALLO MD [address], [place], [address], [facility] 12/10/2024 11:01:38 OBGyn Episode No OBEpisode recorded.
--- OUTSIDE RECORDS SUMMARY | 2024-12-16 10:37 | XMS_ITS | Patient Health Record ---
Author Organization [facility] Address [address] [place] [address] Care Team Providers Care Livestock Nutritionist Name Role Phone Bridgett Underwood Primary Care Provider Unavailab Cynthia Mcdonald Unavailable [phone] Allergies Allergen (clinical drug ingredient) Drug/Non Drug Allergy documented on EMR Reaction Allergy Type Onset Date Status meloxicam Meloxicam other reaction Drug Allergy Ac tive Reason For Referral No Information Medications Medication SIG (Take, Route, Frequency, Duration) Notes Start Date End Date Status Lutein 20 MG 1 capsule with a vira l Orally Once a day Active Albuterol Sulfate HFA 108 (90 Base) MCG/ACT Inhalation for 17 Days Active Multi Complete - as directed Orally Active Symbicort 160-4.5 MCG/ACT Inhalation for 30 Days Active RABEprazole Sodium 20 MG 1 tablet after a meal Orally Once a day Active Entresto 24-26 MG 1 tablet Orally Twic e a day Active Farxiga 10 MG 1 tablet Orally Once a day Active Spironolactone 25 MG 1 tablet Orally Active Atorvastatin Calcium 40 MG 1 tablet Oral ly Once a day Active Montelukast Sodium 10 MG 1 tablet Orally Once a day Active metFORMIN HCl 500 MG 1 tablet with a vira l Orally Once a day Active Potassium 99 MG 1 tablet Orally Once a day Active Vitamin D Active Pantoprazole Sodium 40 MG 1 tablet Orall y Once a day Not-Taking Azelastine HCl 137 MCG/SPRAY 2 sprays in each nostril Nasally Twice a day for 30 days Active Social History Tobacco Use: Social History Observation Description Date Details (start date - stop date) Former Smoker NA - NA Tobacco Control (Standard) Question Answer Notes Tobacco use: Former smoker How long has it been since you last smoked? Grea ter than 10 years Problems Problem Type SNOMED Code ICD Code Onset Dates Problem Status W/U Status Risk Notes Problem Chronic rhinitis (35009324) Chronic rhinitis (J31.0) Active confirmed Problem Uncomplicated moderate persistent asthma (066943191) Moderate persistent asthma, uncomplicated (J45.40) Active confirmed Problem Gastro-esophageal reflux disease without esophagitis (523786332) Gastro-esophageal reflux disease without esophagitis (K21.9) Active confirmed Vital Signs Oximetry 95 % 07/09/2024 Blood pressure diastolic 69 mm Hg 07/09/2024 Height 61 in 07/09/2024 Blood pressure systolic 109 mm Hg 07/09/2024 Weight 151.0 lbs 07/09/2024 BMI 28.53 kg/m2 07/09/2024 Encounters Encounter Location Date Provider Diagnosis [facility] [address] [place] [address] 06/04/2024 Cynthia Peralta Moderate persistent asthma, uncomplicated J45.40 ; Chronic cough R05.3 ; Chronic rhinitis J31.0 and Gastro-esophageal reflux disease without esophagitis K21.9 [facility] [address] [place] [address] 07/09/2024 Cynthia Peralta Moderate persistent asthma, uncomplicated J45.40 ; Chronic cough R05.3 ; Chronic rhinitis J31.0 and Gastro-esophageal reflux disease without esophagitis K21.[address] [address] 06/04/2024 Cynthia Peralta [facility] [address] [place] [address] 07/09/2024 Cynthia Peralta Assessments Encounter Date Diagnosis (ICD Code) Assessment Notes Treatment Notes Treatment Clinical Notes Section Notes 06/04/2024 Moderate persistent asthma, uncomplicated (ICD-10 - J45.40) Request for records was sent to Dr. Gordon's office. Improvement with Symbicort and recommend continuing for now. 06/04/2024 Chronic cough (ICD-10 - R05.3) Considerations for cough include post nasal drip, asthma, and GERD. She is already taking pantoprazole. Recommend starting Astelin to treat post nasal drip and continue Symbicort. A copy of this consultation report was sent to the requesting physician. 07/09/2024 Moderate persistent asthma, uncomplicated (ICD-10 - [...] sinus rinses and Astelin since overall improvement 06/04/2024 Chronic rhinitis (ICD-10 - J31.0) Given the history and symptoms, skin testing was performed to common aeroallergens to determine atopic status. Skin testing today was negative for aeroallergens. We discussed non allergic rhinitis including trigger factors of strong odors and changes in barometric pressure. 07/09/2024 Chronic rhinitis (ICD-10 - J31.0) Skin testing at her initial visit was negative for aeroallergens. We discussed non allergic rhinitis including trigger factors of strong odors and changes in barometric pressure. 06/04/2024 Gastro-esophageal reflux disease without esophagitis (ICD-10 - K21.9) request for records sent to [facility]. Continue pantoprazole to treat GERD. 07/09/2024 Gastro-esophageal reflux disease without esophagitis (ICD-10 - K21.9) request for records sent to [facility]. Continue rabeprazole to treat GERD. 06/04/2024 Other 07/09/2024 Other Plan Of Treatment No Information Insurance Providers Payer Name Payer Address Payer Phone Subscriber Number Group Number Insured Name Patient Relationship to Insured Coverage Start Date Coverage End Date [employer] (Medicare) Attention Claims [address] [place] [address] [id number] Jenni Herbert Self - patient is the insured [facility] [place] [address] [id number] Jenni Herbert Self - patient is the insured Medical (General) History Medical History History ICD Code Diabetes Congestive Heart Failure Chronic rhinitis J31.0 Chronic cough R05.3 Surgical History Surgery Date(Month/Year) Tonsillectomy 1955 tubal ligation 1999 cholecystectomy 1999 Hospitalization History Reason Date(Month/Year) see above
--- OUTSIDE RECORDS SUMMARY | 2024-12-16 10:37 | XMS_ITS | Clinical Summary ---
[facility] Organization [facility] Address [address] [place] [address] Care Team Providers Care Scientific Process Operator Name Role Phone Ami Underwood Primary Care Provider [phone] Allergies Active Allergy Reactions Criticality Noted Date [...] 05/27/2020 Assessment & Plan (07/22/2020 12:31 PM [employer] PROFESSIONAL [employer]OR[employer]): Does not meet criteria for lung cancer screening Assessment & Plan (05/27/2020 12:34 PM CDT): Does not meet criteria for lung cancer screening. Quit smoking many years ago. Cough 05/27/2020 Assessment & Plan (07/22/2020 12:42 PM [employer]): Normal spirometry, lung volumes, diffusion, exercise oximetry. [...] on file Sexual Orientation Not on file Obstetrics History Last Filed Vital Signs Vital Sign Reading Time Taken Comments Blood Pressure 115/58 06/26/2023 1:10 PM CDT Pulse 74 06/26/2023 1:10 PM CDT Temperature 36.3 C (97.3 F) 07/22/2020 12:30 PM [employer] Respiratory Rate 21 06/26/2023 1:10 PM CDT Oxygen Saturation 95% 06/26/2023 1:10 PM CDT Inhaled Oxygen Concentration - - Weight 67.6 kg (149 lb) 06/26/2023 8:36 AM CDT Height 157.5 cm (5' 2 ) 06/26/2023 8:36 AM CDT Body Mass Index 27.25 06/26/2023 8:36 AM CDT Plan of Treatment Health Maintenance Due Date Last Done Comments Depression Screening 1945 Hepatitis C Screening 1945 Osteoporosis Screening-Bone Density Scan 1945 DTaP/Tdap/Td Vaccine (1 - Tdap) 1957 Hepatitis B Screening 1964 Zoster Vaccine (1 of 2) 1996 Well Visit 65+ 2011 Influenza Vaccine (#1) 2024 0, 05/23/2019, 05/30/2018, Additional history exists Fall Risk Assessment 06/26/2024 06/26/2023 Pneumococcal vaccine 65+ Completed 03/24/2017, 07/18 Insurance MEDICARE [facility] Address: [facility] [address] [place] [address] [facility] MEDICARE [facility] Care Teams Scientific Process Operator Relationship Specialty Start Date End Date Ami Underwood PA [facility] [place] [address] PCP - General Family Practice 06/15/23
== END 2024-12-16 09:47 | disposition home or self-care (01) ==
PROVIDERS: PCP Physician Assistant Medical; Visit Provider Internal Medicine Cardiovascular Disease
DX: I51.89 Other ill-defined heart diseases (principal)
CPT/HCPCS: 93306

== ENCOUNTER 2025-03-24 09:14 | Outpatient (CLI) | payer MEDICARE, OTHER, SELFPAY ==
--- NOTE | ~2025-03-24 | US_ITS ---
EXAMINATION: US venous doppler [facility] DATE: 03/24/2025 09:54 INDICATION: Bilateral lower limb pain and swelling TECHNIQUE: Grayscale ultrasound images without and with compression and Doppler ultrasound images of the bilateral lower extremity veins were obtained. COMPARISON: None. FINDINGS: The visualized portions of right common femoral vein, profunda (deep) femoral vein, femoral vein, pop liteal vein, posterior tibial veins, peroneal veins, gastrocnemius vein and greater saphenous vein ou tflow are patent. The visualized portions of left common femoral vein, profunda femoral vein, femoral vein, popliteal v ein, posterior tibial veins, peroneal veins, gastrocnemius vein and greater saphenous vein outflow ar e patent. IMPRESSION: 1. No deep venous thrombosis in either lower limb. Reviewed, dictated and finalized at location A.
--- OUTSIDE RECORDS SUMMARY | 2025-03-24 09:22 | XMS_ITS | Clinical Summary ---
Author Organization [facility] Address [address] [place] [address] Care Team Providers Care Refractory Manager Name Role Phone Unavailable Primary Care Provider Unavailabl e Source Comments [facility],non-owned Affiliates and Associated Physician Practices is amultiple site organization consisting of ambulatory clinics and hospital sitesin [place], [place], [place] and [place]. This disclosure is being madepursuant to the Care Everywhere program and may not contain all information available regarding this patient. Last updated 18.[employer] [facility] Allergies No known active allergies Medications * Be aware that medications may not be up to date on this document. Alwaysverify current medications with the patient. cefdinir (OMNICEF) 300 MG capsule TAKE 1 [...] Active SHINGRIX 50 MCG SUSR injection 01/30/2018 Acti ve Social History Tobacco Use Types Packs/Day Years Used Date Smoking Tobacco: Never Assessed Comments Unknown Sex and Gender Information Value Date Recorded Sex Assigned at Not on file Legal Sex Female 2:14 PM CDT Gender Identity Not on file [...] 2:43 PM CDT Height 154.9 cm (5' 1) 04/01/2018 2:43 PM CDT Body Mass Index [...] - 1-dose 75+ series) 2021 COVID-19 VACCINE (1 - 2023-2 5 season) 2024 DEPRESSION SCREENING 09/17/2024 INFLUENZA VACCINE (#1) 2025 HEPATITIS B VACCINE Aged Out No longe [...] age to complete this topic Insurance MEDICARE MEDICARE MEDICARE [facility]
--- OUTSIDE RECORDS SUMMARY | 2025-03-24 09:22 | XMS_ITS | Referral Summary ---
[facility] Organization [facility] Address [address] [place] [address] Care Team Providers Care Hospital Nurse Liaison Name Role Phone Ami Underwood Primary Care Provider [phone] Allergies Active Allergy Reactions Criticality Noted Date [...] 05/27/2020 Assessment & Plan (07/22/2020 12:31 PM MANDOLIN REPAIR PERSON): Does not meet criteria for lung cancer screening Assessment & Plan (05/27/2020 12:34 PM CDT): Does not meet criteria for lung cancer screening. Quit smoking many years ago. Cough 05/27/2020 Assessment & Plan (07/22/2020 12:42 PM MANDOLIN REPAIR PERSON): Normal spirometry, lung volumes, diffusion, exercise oximetry. [...] 36.3 C (97.3 F) 07/22/2020 12:30 PM MANDOLIN REPAIR PERSON Respiratory Rate 21 06/26/2023 1:10 PM CDT Oxygen Saturation 95% 06/26/2023 1:10 PM CDT Inhaled Oxygen Concentration - - Weight 67.6 kg (149 lb) 06/26/2023 8:36 AM CDT Height 157.5 cm (5' 2) 06/26/2023 8:36 AM CDT Body Mass Index 27.25 06/26/2023 8:36 AM CDT Plan of Treatment Not on file Insurance MEDICARE [facility] [place] [id number] MEDICARE [facility] MEDICARE Care Teams Hospital Nurse Liaison Relationship Specialty Start Date End Date Ami Underwood PA [address] [place] [address] PCP - General Family Practice 06/15/23
--- OUTSIDE RECORDS SUMMARY | 2025-03-24 09:22 | XMS_ITS | Patient Health Record ---
Author Organization [facility] [place] ([address]) Address [address] [place] [address] Care Team Providers Care [employer] Coxswain Name Role Phone Bridgett Underwood Primary Care Provider Unavailab Cynthia Mcdonald Unavailable [phone] Allergies Allergen (clinical drug ingredient) Drug/Non Drug [...] Albuterol Sulfate HFA 108 (90 Base) MCG/ACT Inhalation; Duration: 17 Days Active Multi Complete - as directed Orally Active Symbicort 160-4.5 MCG/ACT Inhalation; Du ration: 30 Days Active RABEprazole Sodium 20 MG [...] sprays in each nostril Nasally Twice a day; Duration: 30 days Active Social History Tobacco Use: [...] W/U Status Risk Notes Problem Chronic rhinitis (64853882) Chronic rhinitis (J31.0) Active confirmed Problem Uncomplicated moderate persistent asthma (298368875) Moderate persistent asthma, uncomplicated (J45.40) Active confirmed Problem Gastro-esophagea l reflux disease without esophagitis (K21.9) Active confirmed Vital Signs Blood pressure diastolic 69 mm Hg 07/09/2024 Oximetry 95 % 07/09/2024 Height 61 in 07/09/2024 Blood pressure systolic 109 mm Hg 07/09/2024 Weight 151.0 lbs 07/09/2024 BMI 28.53 kg/m2 07/09/2024 Encounters Encounter Location Date Provider Diagnosis [facility] [address] [place] [id number] 06/04/2024 Cynthia Peralta Moderate persistent asthma, uncomplicated J45.40 ; Chronic cough R05.3 ; Chronic rhinitis J31.0 and Gastro-esophageal reflux disease without esophagitis K21.9 [facility] [address] [place] [phone] 07/09/2024 Cynthia Peralta Moderate persistent asthma, uncomplicated J45.40 ; Chronic cough R05.3 ; Chronic rhinitis J31.0 and Gastro-esophageal reflux disease without esophagitis K21.[address] [address] 06/04/2024 Cynthia Peralta [facility] [address] [place] [address] 07/09/2024 Cynthia Peralta Assessments Encounter Date Diagnosis [...] Insured Coverage Start Date Coverage End Date [employer] (Medicare) Attention Claims [address] [place] [address] [id number] Jenni Herbert Self - patient is the insured [place] [facility] [place] [id number] Jenni Herbert Self - patient is the insured Medical (General) History Medical History History ICD Code Diabetes Congestive Heart Failure Chronic rhinitis J31.0 Chronic cough R05.3 Surgical History Surgery Date(Month/Year) Tonsillectomy 1955 tubal ligation 1999 cholecystectomy 1999 Hospitalization History Reason Date(Month/Year) see above
--- OUTSIDE RECORDS SUMMARY | 2025-03-24 09:22 | XMS_ITS | Clinical Summary ---
Author Organization [facility] Address [address] [place] [address] Care Team Providers Care Personal Injury Legal Assistant Name Role Phone Ami Underwood Primary Care Provider [phone] Allergies Active Allergy Reactions Criticality Noted Date [...] 05/27/2020 Assessment & Plan (07/22/2020 12:31 PM SEMICONDUCTOR WAFERS SAW OPERATOR): Does not meet criteria for lung cancer screening Assessment & Plan (05/27/2020 12:34 PM CDT): Does not meet criteria for lung cancer screening. Quit smoking many years ago. Cough 05/27/2020 Assessment & Plan (07/22/2020 12:42 PM SEMICONDUCTOR WAFERS SAW OPERATOR): Normal spirometry, lung volumes, diffusion, exercise oximetry. [...] 36.3 C (97.3 F) 07/22/2020 12:30 PM SEMICONDUCTOR WAFERS SAW OPERATOR Respiratory Rate 21 06/26/2023 1:10 PM CDT [...] of 2) 1996 Well Visit 65+ 2011 Fall Risk Assessment 06/26/2024 06/26/2023 Influenza Vaccine (#1) 2025 0, 05/23/2019, 05/30/2018, Additional history exists Pneumococcal vaccine 65+ Completed 03/24/2017, 07/18 Insurance MEDICARE [facility] Address: [facility] [address] [place] [address] [facility] MEDICARE [facility] [place] MEDICARE Care Teams Personal Injury Legal Assistant Relationship Specialty Start Date End Date Ami Underwood PA [facility] [place] [address] PCP - General Family Practice 06/15/23
--- OUTSIDE RECORDS SUMMARY | 2025-03-24 09:22 | XMS_ITS | Clinical Summary ---
Author Organization [facility] Address [address] [place] [address] Care Team Providers Care Automation Developer Name Role Phone Manuel Houston PA-C Primary Care Provider [phone]- [phone] Allergies Active Allergy Reactions Criticality Noted Date [...] Noted Date Diagnosed Date PE (pulmonary thromboembolism) ([facility]) 01/28/2023 Pes cavus 06/21/2017 Capsulitis 06/14/2017 Bunion, right 06/11/2017 Pain of right heel 06/11/2017 Resolved Problems Problem Noted Date Diagnosed Date Resolved Date Encounter for preventive health examination 06/05/2017 02/05/2023 Encounters Date Type Department Care Team Description 02/27/2025 2:13 PM CDT - 02/27/2025 11:59 PM CDT Hospital Encounter [facility] [place] [address] [place] [address] Manuel Houston PA-C Discharge Disposition: Home or Self Care (Routine Discharge) 02/27/2025 Travel 02/13/2025 11:30 AM CDT - 02/13/2025 11:59 PM CDT [place] [address] [place] [address] Manuel Houston PA-C Discharge Disposition: Home or Self Care (Routine Discharge) 02/13/2025 Travel from Last 3 Months Family History Medical History Relation Comments Breast [...] place to sleep or slept in a penitentiary (including now)? No 01/28/2023 Comments Unknown Sex [...] A M CDT Height 154.9 cm (5' 1) 01/28/2023 2:24 PM CDT Body Mass Index 28.83 01/28/2023 2:24 PM CDT Plan of Treatment Upcoming Encounters Date Type Department Care Team (Late st Contact Info) Description 09/08/2025 3:00 PM METER TESTER PRIMARY Office Visit [facility] - [address] [id number] Dwayne Shipman MD [address] [place] [id number] Health Maintenance Due Date Last Done Comments Hepatitis C 1963 Annual Medicare Wellness Visit 2011 Dexa Scan (General) 2011 Zoster Vaccines (3 of 3) 07/01/2018 018, 05/06/2018, 01/30/2018, Additional history exists COVID-19 Vaccine ( season) 2024 06/13/2022, 07/29/2021, 01/18/2021, Additional history exists PHQ-2 (Physician [place]) 09/17/2024 DTaP, Tdap and Td Vaccines (3 - Td or Tdap) 05/18/2033 05/18/2023, 11/06/2011 RSV Immunization or 60+ Years Completed 08/07/2023 Pneumococcal Vaccine: 50+ Years Completed 12/07/2024, 03/24/2017, 07/29/2015, Additional history exists Meningococcal B Vaccine Aged Out No l onger eligible based on patient's age to complete this topic Meningococcal Vaccine Aged Out No romain gage eligible based on patient's age to complete this topic RSV Immunizations Under 20 Months Aged Out No longer eligible based on patient's age to complete this topic Procedures Procedure Name Priority Date/Time Associated Diagnosis Comments PET EYE TO THIGH [id number] Routine 02/27/2025 3:45 PM CDT Solitary pulmonary nodule CTA CHEST STAT 02/13/2025 12:17 PM CDT SOB (shortness of breath) CREATININE W/GFR Routine 02/13/2025 12:0 9 PM CDT from Last 3 Months Results * PET EYE TO THIGH [id number] (02/27/2025 3:45 PM CDT) Anatomical Region Laterality Modality Body Positron Emissio n Tomography (PET) 03/02/2025 9:47 AM CDT Impressions 03/02/2025 3:12 PM CDT IMPRESSION: 1. Redemonstration of the 1.0 x 0.8 cm nodule in the right upper lobe. In retrospect, this is been present since 2022 where it measured 0.9 x 0.7 cm. Metabolic activity is mildly increased compared to background lung parenchyma without associated hypermetabolic lymph nodes. Some adjacent small calcifications are noted distal to this on the prior exam as well. Given these findings, this may reflect an infectious or inflammatory etiology, possibly granulomatous disease. However, a low-grade neoplasm is not entirely excluded. Consider CT follow-up in 3-6 months to ensure stability. If there is high clinical concern for malignancy, tissue sampling may be obtained for definitive diagnosis. 2. No hypermetabolic lymph nodes in the head/neck, chest, abdomen, or pelvis. 3. New focal linear consolidation in the lateral right lower lobe with mildly increased activity compared to background lung parenchyma. This is likely infectious or inflammatory in etiology. Attention on follow-up CT chest to ensure resolution. The attending radiologist has reviewed the image(s) and agrees with the content of this report. Ordered By: MANUEL HOUSTON Interpreted By: Antwon Maguire MD, 03/02/2025 9:47 AM Narrative 03/02/2025 3:12 PM CDT [facility] [address] [facility] [place] [id number] EXAMINATION: TUMOR FDG-PET/CT IMAGING DATE OF STUDY: 02/27/2025 2:30 PM SCANNER: [facility] RADIOPHARMACEUTICAL: 12.6 mCi F-18 Fluorodeoxyglucose (FDG) i.v. Injection site: Left antecubital fossa HISTORY: 79-year-old woman former smoker who quit in 1998 previously smoking 1 pack per day with incidental pulmonary nodule in the right upper lobe on recent CT scan from February 13. The study is requested for diagnosis. Initial treatment strategy. TECHNIQUE: The patient's fasting blood glucose level, measured by glucometer before injection of FDG, was 93 mg/dL. MD-Gastroview was not given orally. After intravenous administration of FDG, noncontrast CT images were obtained for attenuation correction and for fusion with emission PET images to allow for anatomical localization of PET findings. Emission PET images were then obtained. The study was interpreted on the [employer] workstation. The mean liver SUV (reported for quality assurance auditor purposes) is 2.5. The total scanned area was skull base to the proximal thighs. Images of the body were obtained starting 60 minutes after injection of tracer. COMPARISON: CTA chest 02/13/2025, 01/28/2023 FINDINGS: There is a 1.0 x 0.8 cm nodule in the right upper lobe which demonstrates a maximum SUV of 1.4, increased compared to background lung parenchyma which demonstrates a maximal SUV of 0.5. In retrospect, this nodule was present in 2022 where it measured approximately 0.9 x 0.7 cm. There are no hypermetabolic mediastinal, hilar, or axillary lymph nodes. Given its relative stability, lack of hypermetabolic lymph nodes, and only minimal change in size since 2022, a chronic infectious or inflammatory process is possible. A low-grade neoplasm is not entirely excluded. Respiratory motion degrades evaluation on the current examination CT images. On previous CT imaging, there appeared to be adjacent small calcifications suggesting a possible granulomatous process. There is a new linear consolidation in the lateral right lower lobe measuring 1.5 cm in length with a maximum SUV of 1.8. Given its acuity, this is likely infectious or inflammatory in etiology. There is diffusely increased metabolic activity of the large bowel, likely secondary to Metformin. Additional CT findings: There are mild calcifications of the thoracic aorta. There is an aberrant right subclavian artery. There are mild coronary artery calcifications. There are calcified left hilar lymph nodes. There is atelectasis/scarring in the left lung base, unchanged since 2022. There is a calcified granuloma in the left lower lobe. Mild cardiac likely. There is a stable 1 cm cyst in the right hepatic lobe. The gallbladder is surgically absent. There are mild calcifications of the abdominal aorta, particularly at the origins of the renal arteries. There is a small hiatal hernia. There is colonic diverticulosis. There are postsurgical changes to the abdominal wall from prior mesh hernia repair. Calcification in the left buttock likely secondary to prior injection. There is a slight S-shaped curvature of the spine. There are degenerative changes throughout the spine, worst in the lumbar spine. There are degenerative changes of the bilateral shoulders, right greater than left. Procedure Note Patricia Harvey MD - 03/02/2025 [facility] [address] [place] [address] EXAMINATION: TUMOR FDG-PET/CT IMAGING DATE OF STUDY: 02/27/2025 2:30 PM SCANNER: [facility] RADIOPHARMACEUTICAL: 12.6 mCi F-18 Fluorodeoxyglucose (FDG) i.v.Injection site: Left antecubital fossa HISTORY: 79-year-old woman former smoker who quit in 1998 previouslysmoking 1 pack per day with incidental pulmonary nodule in the right upperlobe on recent CT scan from February 13. The study is requested for diagnosis. Initial treatment strategy. TECHNIQUE: The patient's fasting blood glucose level, measured byglucometer before injection of FDG, was 93 mg/dL. MD-Gastroview was notgiven orally. After intravenous administration of FDG, noncontrast CTimages were obtained for attenuation correction and for fusion withemission PET images to allow for anatomical localization of PET findings.Emission PET images were then obtained. The study was interpreted on [employer] workstation. The mean liver SUV (reported for quality controlpurposes) is 2.5. The total scanned area was skull base to the proximal thighs. Images ofthe body were obtained starting 60 minutes after injection of tracer. COMPARISON: CTA chest 02/13/2025, 01/28/2023 FINDINGS: There is a 1.0 x 0.8 cm nodule in the right upper lobe which demonstratesa maximum SUV of 1.4, increased compared to background lung parenchymawhich demonstrates a maximal SUV of 0.5. In retrospect, this nodule waspresent in 2022 where it measured approximately 0.9 x 0.7 cm. There are nohypermetabolic mediastinal, hilar, or axillary lymph nodes. Given itsrelative stability, lack of hypermetabolic lymph nodes, and only minimalchange in size since 2022, a chronic infectious or inflammatory process ispossible. A low-grade neoplasm is not entirely excluded. Respiratorymotion degrades evaluation on the current examination CT images. Onprevious CT imaging, there appeared to be adjacent small calcificationssuggesting a possible granulomatous process. There is a new linear consolidation in the lateral right lower lobemeasuring 1.5 cm in length with a maximum SUV of 1.8. Given its acuity,this is likely infectious or inflammatory in etiology. There is diffusely increased metabolic activity of the large bowel, likelysecondary to Metformin. Additional CT findings: There are mild calcifications of the thoracicaorta. There is an aberrant right subclavian artery. There are mildcoronary artery calcifications. There are calcified left hilar lymphnodes. There is atelectasis/scarring in the left lung base, unchangedsince 2022. There is a calcified granuloma in the left lower lobe. Mildcardiac likely. There is a stable 1 cm cyst in the right hepatic lobe. Thegallbladder is surgically absent. There are mild calcifications of theabdominal aorta, particularly at the origins of the renal arteries. Thereis a small hiatal hernia. There is colonic diverticulosis. There arepostsurgical changes to the abdominal wall from prior mesh hernia repair.Calcification in the left buttock likely secondary to prior injection.There is a slight S-shaped curvature of the spine. There are degenerativechanges throughout the spine, worst in the lumbar spine. There aredegenerative changes of the bilateral shoulders, right greater thanleft. IMPRESSION: 1. Redemonstration of the 1.0 x 0.8 cm nodule in the right upper lobe. Inretrospect, this is been present since 2022 where it measured 0.9 x 0.7cm. Metabolic activity is mildly increased compared to background lungparenchyma without associated hypermetabolic lymph nodes. Some adjacentsmall calcifications are noted distal to this on the prior exam as well.Given these findings, this may reflect an infectious or inflammatoryetiology, possibly granulomatous disease. However, a low-grade neoplasm isnot entirely excluded. Consider CT follow-up in 3-6 months to ensurestability. If there is high clinical concern for malignancy, tissuesampling may be obtained for definitive diagnosis. 2. No hypermetabolic lymph nodes in the head/neck, chest, abdomen, orpelvis. 3. New focal linear consolidation in the lateral right lower lobe withmildly increased activity compared to background lung parenchyma. This islikely infectious or inflammatory in etiology. Attention on follow-up CTchest to ensure resolution. The attending radiologist has reviewed the image(s) and agrees with thecontent of this report. Ordered By: MANUEL HOUSTON Interpreted By: Antwon Maguire MD, 03/02/2025 9:47 AM us Manuel Houston PA-C PET Final Resu lt * CTA CHEST (02/13/2025 12:17 PM CDT) Anatomical Region Laterality Modality Chest Computed Tomogra phy 02/13/2025 12:2 8 PM CDT Impressions 02/13/2025 12:37 PM CDT IMPRESSION: No pulmonary embolism in the main pulmonary arteries or segmental branches. 1 cm nodule right upper lobe. Further evaluation with PET/CT versus follow-up in 3 months recommended. Differential would include intrapulmonary lymph node versus neoplasm. Slightly prominent consolidative changes in the left lower lobe. Follow-up in 3 months is recommended to ensure resolution. Scattered air trapping in the lungs bilaterally. 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 Ordered By: MANUEL HOUSTON Interpreted By: Johan Hebert MD, 02/13/2025 12:28 PM Narrative 02/13/2025 12:37 PM CDT [facility] [address] [facility] [address] [place] [id number] Procedure(s): CTA CHEST Date of service: 02/13/2025 11:41 AM Provided clinical information: 79 years, Female, sob PE (Pulmonary Embolism) history of PE. Chronic cough. Chest pain. Procedure and materials: Helical images of the chest are obtained from superior to the thoracic inlet to inferior to the costophrenic angles. Examination performed after intravenous contrast. 75 mL Isovue-370. Postprocessing was performed. 3-D MIP images obtained. A dose lowering technique was used for this procedure, which may include, but is not limited to, dose reduction technique, automated exposure control, iterative reconstruction, ALARA (As Low As Reasonably Achievable), or Image Gently techniques. Comparison studies: January 28, 2023. Findings: Axillae: No enlarged axillary lymph nodes. Mediastinum/Leanna:Small hiatal hernia is present. Fluid is present within soft tissues. This may relate to abnormal esophageal. Skeletal cyst. There is the anatomical variant of a retroesophageal right subclavian artery. No pulmonary embolism present in the main pulmonary arteries or segmental branches. Lung Parenchyma:Scattered air trapping in the right and left lung. 1 cm nodule right upper lobe. Follow-up in 3 months recommended versus PET/CT for further evaluation. Atelectatic changes are present in the lungs bilaterally. Calcified granuloma left lung base. Prominent atelectatic and consolidative changes left lower lobe. Follow-up in 3 months recommended. Visualized Upper abdominal structures:Small hepatic hypoattenuation is present subadjacent to the gallbladder fossa. This measures approximately -6 Hounsfield units. This is consistent with small cysts. No further follow-up is recommended per current imaging consensus recommendations. Bone Windows:Kyphosis of the thoracic spine. Procedure Note Johan Hebert MD - 02/13/2025 [facility] [address] [place] [address] Procedure(s): CTA CHEST Date of service: 02/13/2025 11:41 AM Provided clinical information: 79 years, Female, sob PE (Pulmonary Embolism) history of PE. Chronic cough. Chest pain. Procedure and materials: Helical images of the chest are obtained fromsuperior to the thoracic inlet to inferior to the costophrenic angles.Examination performed after intravenous contrast. 75 mL Isovue-370. Postprocessing was performed. 3-D MIP images obtained. A dose lowering technique was used for this procedure, which may include,but is not limited to, dose reduction technique, automated exposurecontrol, iterative reconstruction, ALARA (As Low As ReasonablyAchievable), or Image Gently techniques. Comparison studies: January 28, 2023. Findings: Axillae: No enlarged axillary lymph nodes. Mediastinum/Leanna:Small hiatal hernia is present. Fluid is present withinsoft tissues. This may relate to abnormal esophageal. Skeletal cyst. There is the anatomical variant of a retroesophageal right subclavianartery. No pulmonary embolism present in the main pulmonary arteries or segmentalbranches. Lung Parenchyma:Scattered air trapping in the right and left lung. 1 cmnodule right upper lobe. Follow-up in 3 months recommended versus PET/CTfor further evaluation. Atelectatic changes are present in the lungsbilaterally. Calcified granuloma left lung base. Prominent atelectatic andconsolidative changes left lower lobe. Follow-up in 3 monthsrecommended. Visualized Upper abdominal structures:Small hepatic hypoattenuation ispresent subadjacent to the gallbladder fossa. This measures approximately-6 Hounsfield units. This is consistent with small cysts. No furtherfollow-up is recommended per current imaging consensus recommendations. Bone Windows:Kyphosis of the thoracic spine. IMPRESSION: No pulmonary embolism in the main pulmonary arteries or segmentalbranches. 1 cm nodule right upper lobe. Further evaluation with PET/CT versusfollow-up in 3 months recommended. Differential would includeintrapulmonary lymph node versus neoplasm. Slightly prominent consolidative changes in the left lower lobe. Follow-upin 3 months is recommended to ensure resolution. Scattered air trapping inthe lungs bilaterally. 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 Ordered By: MANUEL HOUSTON Interpreted By: Johan Hebert MD, 02/13/2025 12:28 PM Manuel Houston PA-C CT Final Resu lt * (ABNORMAL) CREATININE W/GFR (02/13/2025 12:09 PM CDT) CREATININE WHOLE BLOOD 0.7 0.6 - 1.3 mg/dL 02/13/2025 12:11 PM CDT [facility] GFR ESTIMATE 88(L) >90 ml/min/1.7 3 m2 02/13/2025 12:11 PM CDT [facility] 02/13/2025 12:0 9 PM CDT us Manuel Houston PA-C POINT OF CARE TEST ORDERAB LES Final Result [facility] [address] [place] [address], [place] [phone] from Last 3 Months Insurance MEDICARE [employer] Advance Directives Documents on File Type Date Recorded Patient Financial Underwriter Expl anation DNR (Do Not Resuscitate) Documentation 03/28/2013 12:00 AM DO NOT RESUSCITATE * Full Code (Latest Code Status on File) Date Activated Date Inactivated Comments 01/28/2023 1:17 PM 01/30/2023 6:03 PM Care Teams Automation Developer Relationship Specialty Start Date End Date Manuel Houston PA-C [address] [place] [address] [address] [place] [address] PCP - General PHYSICIAN SCHOOL DIRECTOR 01/28/23
== END 2025-03-24 09:15 | disposition home or self-care (01) ==
PROVIDERS: PCP Physician Assistant Medical; Visit Provider Internal Medicine Cardiovascular Disease
DX: R60.0 Localized edema (principal)
CPT/HCPCS: 93970